=== PATIENT | female | born 1935 | race Caucasian/White ===

== ENCOUNTER → 2016-12-26 | Outpatient (CLI) | payer MEDICARE, BC ==
[~2016-12-26] MED LIST: DENOSUMAB 60 MG/ML 1 ML SYRINGE SQ NR
[2016-12-26 10:21] VITALS: BP 173/84; PULSE 79; RESP 16; TEMP 97.9
== END | disposition home or self-care (01) ==
LOC: PROCWHC3 10:04
PROVIDERS: ATTEND Family Medicine
DX: M81.0 Age-related osteoporosis without current pathological fracture (principal)
CPT/HCPCS: 96372; J0897

== ENCOUNTER → 2018-01-27 | Outpatient (CLI) | payer MEDICARE, BC ==
[~2018-01-27] MED LIST changes: -DENOSUMAB 60 MG/ML 1 ML SYRINGE SQ NR; +DENOSUMAB 60 MG/ML 1 ML SYRINGE SQ ONE
[2018-01-27 13:25] VITALS: BP 138/81; PULSE 83; RESP 16; TEMP 97.9
== END | disposition home or self-care (01) ==
LOC: PROCWHC3 13:02 → EDSTATUS 13:15
PROVIDERS: ATTEND Family Medicine
DX: M81.0 Age-related osteoporosis without current pathological fracture (principal)
CPT/HCPCS: 96372; J0897

== ENCOUNTER → 2018-03-06 | Outpatient (CLI) | payer MEDICARE, BC ==
--- NOTE | 2018-03-06 15:39 | US ---
EXAMINATION TYPE: US carotid duplex BILAT DATE OF EXAM: 03/06/2018 COMPARISON: NONE CLINICAL HISTORY: R09.89 carotid bruit, R01.1 systolic murmur. Right bruit. Smoker. HTN controlled with meds. High cholesterol controlled with meds. EXAM MEASUREMENTS: RIGHT: Peak Systolic Velocity (PSV) cm/sec ----- Right CCA: 61.6 ----- Right ICA: 73.5 ----- Right ECA: 85.6 ICA/CCA ratio: 1.2 RIGHT: End Diastole cm/sec ----- Right CCA: 11.0 ----- Right ICA: 25.2 ----- Right ECA: 0.0 LEFT: Peak Systolic Velocity (PSV) cm/sec ----- Left CCA: 58.1 ----- Left ICA: 88.6 ----- Left ECA: 75.6 ICA/CCA ratio: 1.5 LEFT: End Diastole cm/sec ----- Left CCA: 13.2 ----- Left ICA: 23.7 ----- Left ECA: 0.0 VERTEBRALS (direction of flow): Right Vertebral: Antegrade Left Vertebral: Antegrade Rhythm: Arrhythmia Moderate to severe atherosclerotic change bilaterally. Velocity measurements and ratios in visualized portion of internal carotid artery are within normal limits. IMPRESSION: Moderate to severe atherosclerotic change bilaterally without hemodynamically significan t stenosis seen in either internal carotid artery. Cardiac arrhythmia noted by technologist during re al-time scanning. If this is not known finding further investigation with Holter monitoring would b e advised. Criteria for Assigning % of Stenosis / Diameter reduction (Estimation based on the indirect measurements of the internal carotid artery velocities (ICA PSV). 1. Normal (no stenosis)=ICA PSV < 125 cm/s: ratio < 2.0: ICA EDV<40 cm/s. 2. Less than 50% stenosis=ICA PSV < 125 cm/s: ratio < 2.0: ICA EDV<40 cm/s. 3. 50 to 69% stenosis=ICA PSV of 125 to 230 cm/s: ration 2.0 ? 4.0: ICA EDV 40-100 cm/s. 4. Greater than 70% stenosis to near occlusion= ICA PSV > 230 cm/s: ratio > 4.0: ICA EDV > 100 cm/s. 5. Near occlusion= ICA PSV velocities may be low or undetectable: variable ratio and ICA EDV. 6. Total occlusion=unable to detect flow.
== END | disposition home or self-care (01) ==
LOC: RADUSWWP 14:57
PROVIDERS: ATTEND Family Medicine
DX: I65.23 Occlusion and stenosis of bilateral carotid arteries (principal); I49.9 Cardiac arrhythmia, unspecified
CPT/HCPCS: 93880

== ENCOUNTER → 2018-03-17 | Outpatient (CLI) | payer MEDICARE, BC ==
--- NOTE | 2018-03-18 13:18 | ECHOF ---
Referral Reason:R01.1 Cardiac murmur MEASUREMENTS -------- HEIGHT: 149.9 cm WEIGHT: 47.6 kg BP: RVIDd: 2.4 cm (< 3.3) IVSd: 1.0 cm (0.6 - 1.1) LVIDd: 4.7 cm (3.9 - 5.3) LVPWd: 1.0 cm (0.6 - 1.1) IVSs: 1.2 cm LVIDs: 2.9 cm LVPWs: 1.3 cm LAESV Index (A-L): 88.86 ml/m Ao Diam: 2.9 cm (2.0 - 3.7) AV Cusp: 1.7 cm (1.5 - 2.6) LA Diam: 4.6 cm (2.7 - 3.8) MV EXCURSION: 19.740 mm (> 18.000) MV EF SLOPE: 59 mm/s (70 - 150) EPSS: 0.2 cm MV E Manny: 1.38 m/s MV DecT: 272 ms MV A Manny: 1.12 m/s MV E/A Ratio: 1.23 RAP: 5.00 mmHg RVSP: 37.40 mmHg FINDINGS -------- Sinus rhythm. Frequent ventricular premature beats. This was a technically good study. The left ventricular size is normal. Left ventricular wall thickness is normal. Overall left vent ricular systolic function is normal with, an EF between 55 - 60 %. The right ventricle is normal in size and function. LA is severely dilated >40 ml/m2 The right atrium is normal in size. Aortic valve is trileaflet and is mildly thickened. There is no evidence of aortic regurgitation. There is no evidence of aortic stenosis. The mitral valve leaflets are mildly thickened. Mild mitral annular calcification present. Modera mm-wp-hegzvb mitral regurgitation is present. 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 Sooe-vr-fsjyqwkf tricuspid regurgitation present. There is borderline pulmonary hypertension. The right ventricular systolic pressure, as measured by Doppler, is 37.40mmHg. Trace/mild (physiologic) pulmonic regurgitation. The aortic root size is normal. Normal inferior vena cava with normal inspiratory collapse consistent with estimated right atrial pre ssure of 5 mmHg. Echo free space indicative of a pericardial fat pad. CONCLUSIONS -------- 1. Sinus rhythm. 2. Frequent ventricular premature beats. 3. This was a technically good study. 4. The left ventricular size is normal. 5. Left ventricular wall thickness is normal. 6. Overall left ventricular systolic function is normal with, an EF between 55 - 60 %. 7. LA is severely dilated >40 ml/m2 8. Aortic valve is trileaflet and is mildly thickened. 9. The mitral valve leaflets are mildly thickened. 10. Mild mitral annular calcification present. 11. Crakxqiq-cr-jgmsje mitral regurgitation is present. 12. 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 13. Waxq-vf-mgfguuvw tricuspid regurgitation present. 14. There is borderline pulmonary hypertension. 15. The right ventricular systolic pressure, as measured by Doppler, is 37.40mmHg. 16. Trace/mild (physiologic) pulmonic regurgitation. 17. The aortic root size is normal. 18. Echo free space indicative of a pericardial fat pad. EXCEPTIONAL STUDENT EDUCATION TEACHER: Channing Goldsmith RDCS
== END ==
LOC: RADECHMAIN 14:45
PROVIDERS: ATTEND Family Medicine
DX: I08.1 Rheumatic disorders of both mitral and tricuspid valves (principal)
CPT/HCPCS: 93306

== ENCOUNTER → 2018-09-02 | Outpatient (CLI) | payer MEDICARE, BC ==
[2018-09-02 12:56] VITALS: BP 169/78; PULSE 80; RESP 16; TEMP 97.8
== END | disposition home or self-care (01) ==
LOC: PROCWHC3 12:38
PROVIDERS: ATTEND Family Medicine
DX: M81.0 Age-related osteoporosis without current pathological fracture (principal)
CPT/HCPCS: 96372; J0897

== ENCOUNTER → 2019-03-17 | Outpatient (CLI) | payer MEDICARE, BC ==
[2019-03-17 15:54] LABS: Basophils % (A) 1 %; Eosinophils # (A) 0.1 k/uL (0-0.7); Eosinophils % (A) 1 %; HCT 39.9 % (34.0-46.0); HGB 12.7 gm/dL (11.4-16.0); Lymphocytes # (A) 1.5 k/uL (1.0-4.8); Lymphocytes % (A) 23 %; MCH 28.4 pg (25.0-35.0); MCHC 31.7 g/dL (31.0-37.0); MCV 89.6 fL (80.0-100.0); Mean Platelet Volume 8.4; Monocytes # (A) 0.4 k/uL (0-1.0); Monocytes % (A) 6 %; Neutrophils # (A) 4.4 k/uL (1.3-7.7); Neutrophils % (A) 67 %; Platelet Count 207 k/uL (150-450); RBC 4.45 m/uL (3.80-5.40); RDW 14.6 % (11.5-15.5); WBC 6.5 k/uL (3.8-10.6)
== END | disposition home or self-care (01) ==
LOC: LABPAT 15:02
PROVIDERS: ATTEND Orthopaedic Surgery
DX: Z01.818 Encounter for other preprocedural examination (principal); Z01.812 Encounter for preprocedural laboratory examination; M70.21 Olecranon bursitis, right elbow
CPT/HCPCS: 36415; 80051; 85025; 93005

== ENCOUNTER 2019-03-22 13:30 | Day surgery (SDC) | payer MEDICARE, BC ==
[2019-03-18 10:27] VITALS: BMI 20.2
--- NOTE | 2019-03-21 18:04 | HP ---
HISTORY AND PHYSICAL REASON FOR ADMISSION: Surgery 03/22/2019 Ginette Linn is an 83-year-old lady seen with a persistent right elbow symptomatic bursitis with component of soft tissue mass. We discussed options. She elected to proceed with surgical excision/right elbow olecranon bursectomy. Consent was obtained. PAST MEDICAL HISTORY: Hypertension, het-kikknol-khbzqflii diabetes. PAST SURGICAL HISTORY: Hysterectomy. MEDICATIONS: Amlodipine, levothyroxine, losartan, pravastatin. ALLERGIES: None. SOCIAL HISTORY: Smokes cigarettes. PHYSICAL EXAMINATION: Physical evaluation of the right elbow: There is a soft tissue mass measuring 2 x 2 cm, raised 1.5 cm along the area of the olecranon bursa consistent with a chronic bursitis/soft tissue mass. There is no evidence for any infective process. She has near full range of motion of the elbow. Her distal neurovascular exam is intact. RADIOGRAPHS: Radiographs of the right elbow failed to reveal any osseous abnormality. IMPRESSION: 1. Right elbow olecranon symptomatic bursitis. 2. Hypertension. 3. Hyperlipidemia. 4. Tobacco use. PLAN: Right elbow bursectomy. Surgery is planned for 03/22/2019. MMODL / IJN: [id number] /
[~2019-03-22 13:30] MED LIST changes: -DENOSUMAB 60 MG/ML 1 ML SYRINGE SQ ONE; +LACTATED RINGERS 1,000 ML IV SCH; +LIDOCAINE 1% 20 ML VIAL (10MG/ML) FOR IV START INTRADERMA PRN; +MIDAZOLAM 2 MG/2 ML VIAL IV PRN; +fentaNYL (PF) 50 MCG/ML 2 ML AMP IV PRN
[2019-03-22 13:57] LABS: Glucose,Whole Blood 89 mg/dL (75-99)
[2019-03-22 14:00] VITALS: TEMP 97
[2019-03-22] MEDS ORDERED: ONDANSETRON 4 MG/2 ML VIAL IVP ONE (14:01)
[2019-03-22] MEDS ORDERED: PROPOFOL 10 MG/ML 20 ML VIAL IV ONE (15:01)
[2019-03-22] MEDS ORDERED: MIDAZOLAM 2 MG/2 ML VIAL ONE (15:01)
[2019-03-22] MEDS ORDERED: fentaNYL (PF) 50 MCG/ML 2 ML AMP ONE (15:01)
[2019-03-22] MEDS ORDERED: ROPIVACAINE 5 MG/ML 30 ML VIAL ONE (15:01)
--- NOTE | 2019-03-22 15:37 | P.OP ---
Date of Procedure: 03/22/19 Preoperative Diagnosis: Right elbow symptomatic olecranon bursitis Postoperative Diagnosis: Same Procedure(s) Performed: Right elbow olecranon bursectomy Anesthesia: regional (Supraclavicular block) Surgeon: Sher Mei Loan Expeditor #1: Yg Wang Estimated Blood Loss (ml): 3 Pathology: none sent Condition: stable Disposition: PACU Indications for Procedure: 83-year-old patient seen with a symptomatic right elbow olecranon bursitis. After having treatment options discussed with her, she elected to proceed with excision/bursectomy. Operative Findings: See description of procedure Description of Procedure: The patient underwent a supraclavicular block by the department of anesthesia. The patient was taken to the operative suite. The patient received IV sedation by the department of anesthesia. The patient did receive preoperative IV antibiotics. A well-padded tourniquet placed proximal right upper extremity. The right upper extremity was prepped and draped in the normal sterile orthopedic fashion. The extremity was elevated and tourniquet insufflated to 200. I made an incision over the area of the olecranon bursa. I dissected around the large olecranon bursa. I carefully excised the olecranon bursa. Hemostasis was achieved via electrocautery. The subcu soft tissues were carefully tacked down utilizing 2-0 Vicryl. The skin was repaired with 3-0 nylon. Sterile dressings were applied. Sterile webril and Yazan bandage were applied. The tourniquet was released and immediate capillary refill of all digits noted. The patient was awakened and transferred to recovery in stable condition. Antoine VERGARA assisted with the procedure.
[2019-03-22 16:24] VITALS: BP 146/67; PULSE 62; RESP 20
--- NOTE | 2019-03-22 16:34 | P.ANPRN ---
Procedure Note - Anesthesia - Nerve Block Performed Right Interscalene Single Time Out Performed: Yes Date of Procedure: 03/22/19 Procedure Start Time: 14:34 Location of Patient Procedure: PreOp Indication: Acute Post-Operative Pain, Requested by Surgeon Specifically requested for management of pain by DrMargaret: Sher Mei Sedation Type: Sedate with meaningful contact maintained Preparation: Sterile Prep Position: Supine Catheter: None Needle Types: Pajunk Needle Gauge: 21 Ultrasound used to visualize needle placement: Yes Ultrasound used to observe medication spread: Yes Injectate: 0.5% Ropivacaine (see comment for volume) (20cc) Blood Aspirated: No Pain Paresthesia on Injection Noted: No Resistance on Injection: Normal Image Stored and Saved: Yes Events: Uneventful and Well Tolerated
== END 2019-03-22 16:50 | disposition home or self-care (01) ==
LOC: OR 13:30
PROVIDERS: ATTEND Orthopaedic Surgery
DX: M70.21 Olecranon bursitis, right elbow (principal); I10 Essential (primary) hypertension; E11.9 Type 2 diabetes mellitus without complications; Z90.710 Acquired absence of both cervix and uterus; F17.210 Nicotine dependence, cigarettes, uncomplicated; E78.5 Hyperlipidemia, unspecified; Z85.3 Personal history of malignant neoplasm of breast; Z97.2 Presence of dental prosthetic device (complete) (partial); Z79.890 Hormone replacement therapy; Z79.899 Other long term (current) drug therapy
CPT/HCPCS: 64415; 76942; 24105; J2250; J2405; J0690; J3010; J2795; J2704; 88305

== ENCOUNTER → 2019-03-26 | Outpatient (CLI) | payer MEDICARE, BC ==
--- NOTE | 2019-03-27 15:42 | ECHOF ---
Referral Reason:R01.1 Heart Murmur MEASUREMENTS -------- HEIGHT: 154.9 cm WEIGHT: 45.4 kg BP: IVSd: 1.3 cm (0.6 - 1.1) LVIDd: 4.4 cm (3.9 - 5.3) LVPWd: 1.1 cm (0.6 - 1.1) IVSs: 1.7 cm LVIDs: 3.2 cm LVPWs: 0.8 cm LA Diam: 6.3 cm (2.7 - 3.8) LAESV Index (A-L): 122.59 ml/m Ao Diam: 2.6 cm (2.0 - 3.7) AV Cusp: 1.2 cm (1.5 - 2.6) LA Diam: 6.7 cm (2.7 - 3.8) MV EXCURSION: 17.701 mm (> 18.000) MV EF SLOPE: 61 mm/s (70 - 150) EPSS: 0.4 cm MV E Manny: 0.76 m/s MV DecT: 244 ms MV A Manny: 0.76 m/s MV E/A Ratio: 0.99 RAP: 5.00 mmHg RVSP: 44.00 mmHg TAPSE: 19.91 mm FINDINGS -------- Sinus rhythm. This was a technically good study. The left ventricular size is normal. Left ventricular wall thickness is normal. Overall left vent ricular systolic function is low-normal with, an EF between 50 - 55 %. Left ventricular fillimg pre ssure cannot be estimated due to severe mitral regurgitation. The right ventricle is normal in size. LA is severely dilated >40 ml/m2 The right atrial size is normal. ASD VS PFO. Aortic valve is trileaflet and is mildly thickened. There is no evidence of aortic regurgitation. Mild mitral annular calcification present. Severe mitral regurgitation is present. There is mild mitral valve prolapse. Possible MV Chordal Rupture. Cney-hd-aykbukdo tricuspid regurgitation present. There is mild pulmonary hypertension. The right ventricular systolic pressure, as measured by Doppler, is 44.00mmHg. Trace/mild (physiologic) pulmonic regurgitation. The aortic root size is normal. Normal inferior vena cava with normal inspiratory collapse consistent with estimated right atrial pre ssure of 5 mmHg. There is no pericardial effusion. CONCLUSIONS -------- 1. Sinus rhythm. 2. This was a technically good study. 3. The left ventricular size is normal. 4. Left ventricular wall thickness is normal. 5. Overall left ventricular systolic function is low-normal with, an EF between 50 - 55 %. 6. Left ventricular fillimg pressure cannot be estimated due to severe mitral regurgitation. 7. LA is severely dilated >40 ml/m2 8. ASD VS PFO. 9. Aortic valve is trileaflet and is mildly thickened. 10. Mild mitral annular calcification present. 11. Severe mitral regurgitation is present. 12. There is mild mitral valve prolapse. 13. Possible MV Chordal Rupture. 14. Izhc-xr-yysncbnw tricuspid regurgitation present. 15. There is mild pulmonary hypertension. 16. Trace/mild (physiologic) pulmonic regurgitation. 17. The aortic root size is normal. 18. Normal inferior vena cava with normal inspiratory collapse consistent with estimated right atrial pressure of 5 mmHg. 19. There is no pericardial effusion. APPLIANCE FIXER: Vero Magallanes RDCS
== END | disposition home or self-care (01) ==
LOC: RADECHMAIN 16:20
PROVIDERS: ATTEND Family Medicine
DX: I08.3 Combined rheumatic disorders of mitral, aortic and tricuspid valves (principal); I27.20 Pulmonary hypertension, unspecified
CPT/HCPCS: 93306

== ENCOUNTER → 2019-04-05 | Outpatient (CLI) | payer MEDICARE, BC ==
[~2019-04-05] MED LIST changes: +DENOSUMAB 60 MG/ML 1 ML SYRINGE SQ NR; -LACTATED RINGERS 1,000 ML IV SCH; -LIDOCAINE 1% 20 ML VIAL (10MG/ML) FOR IV START INTRADERMA PRN; -MIDAZOLAM 2 MG/2 ML VIAL IV PRN; -fentaNYL (PF) 50 MCG/ML 2 ML AMP IV PRN
[2019-04-05 14:41] VITALS: BP 152/88; PULSE 84; RESP 18; TEMP 98.2
== END | disposition home or self-care (01) ==
LOC: PROCWHC3 14:24
PROVIDERS: ATTEND Family Medicine
DX: M81.0 Age-related osteoporosis without current pathological fracture (principal)
CPT/HCPCS: 96372; J0897

== ENCOUNTER 2019-04-13 06:27 | Day surgery (SDC) | payer MEDICARE, BC ==
[2019-04-09 11:20] VITALS: BMI 20.2
[2019-04-13] MEDS ORDERED: SODIUM CHLORIDE 0.9% 500 ML 500 ML IV ONE (07:00)
[2019-04-13 07:04] VITALS: TEMP 97.9
[2019-04-13] MEDS ORDERED: fentaNYL (PF) 50 MCG/ML 2 ML AMP ONE (07:11)
[2019-04-13] MEDS ORDERED: fentaNYL (PF) 50 MCG/ML 2 ML AMP IV ONE (07:25)
[2019-04-13] MEDS ORDERED: BENZOCAINE SPRAY 1 CAN MUCOUS MEM ONE (07:25)
[2019-04-13] MEDS ORDERED: MIDAZOLAM 2 MG/2 ML VIAL IV ONE (07:25)
[2019-04-13] MEDS ORDERED: SODIUM CHLORIDE 0.9% 1,000 ML IV SCH (07:45)
--- NOTE | 2019-04-13 08:29 | ECHOT ---
TRANSESOPHAGEAL ECHOCARDIOGRAM INDICATION: Evaluation of mitral valve. PROCEDURE: After explaining the procedure to the patient as well as the risks and the complications, blood pressure, heart rate, O2 saturation was monitored. The throat was sprayed with Cetacaine. She received 2 mg intravenous Versed, 50 mcg intravenous fentanyl. The probe was introduced esophagus without difficulties. Images were obtained. Following that, the probe was removed. There was no immediate complication. FINDINGS: The left atrial size is dilated. Left atrial appendage is normal. Left ventricular size is normal. The ejection fraction is 50% to 55%. The aortic valve appears to be normal. Mitral valve revealed flail posterior mitral valve leaflets with ruptured chordae. The tricuspid and pulmonic valves are normal. Descending thoracic aorta revealed mild to moderate atherosclerotic changes. No pericardial effusion was noted. Contrast bubble study revealed no evidence of shunting across the interatrial septum. Doppler pulse wave and color Doppler obtained and revealed a severe eccentric mitral regurgitation with mild to moderate tricuspid with trace pulmonic and aortic regurgitation. The estimated right ventricular systolic pressure was 65 mmHg consistent with severe pulmonary hypertension. A small patent foramen ovale was noted with itgq-nn-jkuix shunting. CONCLUSION: 1. Dilated left atrium with normal appearance of left atrial appendage. 2. Normal left ventricular size with ejection fraction 50% to 55%. 3. Flail posterior mitral valve leaflets with ruptured chordae and severe eccentric mitral regurgitation. 4. Mild to moderate tricuspid regurgitation with severe pulmonary hypertension. 5. Small patent foramen ovale. 6. Trace pulmonic and aortic regurgitation. 7. Mild to moderate atherosclerotic change of the descending thoracic aorta. 8. No pericardial effusion. MMODL / IJN: [id number] /
[2019-04-13 08:41] VITALS: BP 119/57; PULSE 66; RESP 18
[2019-04-13] MEDS ORDERED: NON FORMULARY DRUG (Cholecalciferol (Vitamin D3) [Vitamin D3] 2,000 UNIT) PO SCH (09:00)
[2019-04-13] MEDS ORDERED: LEVOTHYROXINE 75 MCG TAB PO SCH (09:00)
[2019-04-13] MEDS ORDERED: amLODIPine 5 MG TAB PO SCH (13:30)
[2019-04-13] MEDS ORDERED: PRAVASTATIN SODIUM 80 MG TAB PO SCH (21:00)
[2019-04-13] MEDS ORDERED: NON FORMULARY DRUG (Losartan Potassium [Losartan Potassium] 100 MG) PO SCH (21:00)
== END 2019-04-13 08:54 | disposition home or self-care (01) ==
LOC: CATHCVL 06:27
PROVIDERS: ATTEND Internal Medicine Interventional Cardiology
DX: I08.3 Combined rheumatic disorders of mitral, aortic and tricuspid valves (principal); Q21.1 Atrial septal defect; I70.0 Atherosclerosis of aorta; I27.20 Pulmonary hypertension, unspecified; R09.89 Other specified symptoms and signs involving the circulatory and respiratory systems; E78.2 Mixed hyperlipidemia; E11.9 Type 2 diabetes mellitus without complications; F17.210 Nicotine dependence, cigarettes, uncomplicated; R01.1 Cardiac murmur, unspecified; Z79.890 Hormone replacement therapy; Z79.899 Other long term (current) drug therapy
CPT/HCPCS: 93312; 93320; 93325; J2250; J3010

== ENCOUNTER → 2020-01-31 | Outpatient (CLI) | payer MEDICARE, BC ==
[~2020-01-31] MED LIST changes: -DENOSUMAB 60 MG/ML 1 ML SYRINGE SQ NR; +DENOSUMAB 60 MG/ML 1 ML SYRINGE SQ ONE
[2020-01-31 14:07] VITALS: BP 152/68; PULSE 73; RESP 18; TEMP 97.7
== END | disposition home or self-care (01) ==
LOC: PROCWHC3 13:45
PROVIDERS: ATTEND Family Medicine
DX: M81.0 Age-related osteoporosis without current pathological fracture (principal)
CPT/HCPCS: 96372; J0897

== ENCOUNTER 2020-03-23 22:44 | Inpatient (IN) | payer MEDICARE, BC ==
--- NOTE | 2020-03-23 23:21 | ED ---
Chest Pain HPI - General Chief Complaint: Chest Pain Stated Complaint: Chest Pain Time Seen by Provider: 03/23/20 22:54 Source: EMS Mode of arrival: EMS Limitations: no limitations - History of Present Illness MD Complaint: chest pain Onset/Timin -: days(s) Onset: during rest Pain Location: substernal, left chest, right chest Pain Radiation: RUE (Right shoulder) Severity: severe Quality: aching Consistency: now resolved Improves With: nothing Worsens With: nothing Treatments Prior to Arrival: aspirin - Related Data Home Medications Medication Instructions Recorded Confirmed Losartan Potassium 100 mg PO DAILY 01/27/18 03/24/20 Pravastatin Sodium [Pravachol] 80 mg PO HS 01/27/18 03/24/20 amLODIPine BESYLATE [Norvasc] 5 mg PO DAILY 01/27/18 03/24/20 Levothyroxine Sodium [Euthyrox] 75 mcg PO DAILY 03/24/20 03/24/20 Previous Rx's Medication Instructions Recorded Apixaban [Eliquis] 2.5 mg PO BID #60 tablet 03/27/20 Furosemide [Lasix] 40 mg PO DAILY #30 tab 03/27/20 Allergies Allergy/AdvReac Type Severity Reaction Status Date / Time No Known Allergies Allergy Verified 03/24/20 06:04 Review of Systems ROS Statement: Those systems with pertinent positive or pertinent negative responses have been documented in the HPI. ROS Other: All systems not noted in ROS Statement are negative. Constitutional: Denies: fever, chills Respiratory: Reports: as per HPI, cough (Chronic cough), dyspnea. Denies: wheezes, hemoptysis Cardiovascular: Reports: as per HPI, chest pain, edema (Bilateral foot edema). Denies: palpitations, orthopnea, syncope Gastrointestinal: Denies: abdominal pain, nausea, vomiting, melena, hematochezia Genitourinary: Denies: dysuria, hematuria Musculoskeletal: Denies: back pain Skin: Denies: rash Neurological: Denies: headache, weakness, numbness EKG Findings - EKG Results: EKG: interpreted by ERMD EKG shows: tachycardia, atrial fibrillation Past Medical History Past Medical History: Cancer, Hyperlipidemia, Hypertension Additional Past Medical History / Comment(s): hx of left breast ca with radiation 1991 History of Any Multi-Drug Resistant Organisms: None Reported Past Surgical History: Hysterectomy Additional Past Surgical History / Comment(s): neck sx, left breast lumpectomy. right elbow bursectomy Past Anesthesia/Blood Transfusion Reactions: No Reported Reaction Past Psychological History: No Psychological Hx Reported Smoking Status: Former smoker Past Alcohol Use History: Occasional Past Drug Use History: None Reported - Past Family History Mother Family Medical History: No Reported History Father Additional Family Medical History / Comment(s): Father fairly young as complications of adhesions. General Exam Limitations: no limitations General appearance: alert, in no apparent distress Head exam: Present: atraumatic, normocephalic Eye exam: Present: normal appearance. Absent: scleral icterus, conjunctival injection ENT exam: Present: normal oropharynx Respiratory exam: Present: normal lung sounds bilaterally, wheezes (Trace expiratory wheeze), rales (Bilateral bases). Absent: respiratory distress, rhonchi, stridor, accessory muscle use Cardiovascular Exam: Present: tachycardia, irregular rhythm, normal heart sounds. Absent: systolic murmur, diastolic murmur, rubs, gallop GI/Abdominal exam: Present: soft. Absent: distended, tenderness, guarding, rebound, rigid, mass Extremities exam: Present: normal inspection, normal capillary refill, pedal edema (Trace edema at the ankles bilaterally). Absent: calf tenderness Back exam: Present: normal inspection. Absent: CVA tenderness (R), CVA tenderness (L) Neurological exam: Present: alert Skin exam: Present: warm, dry, intact, normal color. Absent: rash Course Vital Signs 03/23/20 03/23/20 03/24/20 22:46 23:00 00:06 Temperature 97.5 F L Pulse Rate 70 97 Respiratory 19 22 23 Rate Blood Pressure 136/65 134/68 O2 Sat by Pulse 85 L 98 Oximetry 03/24/20 03/24/20 03/24/20 01:20 02:03 03:26 Temperature 97.7 F 98.3 F Pulse Rate 89 96 89 Respiratory 20 19 19 Rate Blood Pressure 130/66 162/75 131/60 O2 Sat by Pulse 98 97 96 Oximetry 03/24/20 03/24/20 04:15 11:43 Temperature 98.3 F 98.5 F Pulse Rate 94 73 Respiratory 18 18 Rate Blood Pressure 113/62 138/85 O2 Sat by Pulse 96 96 Oximetry - Reevaluation(s) Reevaluation #1: 03/24/20 00:24 Case discussed with cardiology (Dr. Holly) and their input is incorporated Critical Care Time Critical Care Time: Yes (35 minutes) Disposition Clinical Impression: Congestive heart failure (CHF), Atrial flutter with rapid ventricular response, Mitral regurgitation Disposition: ADMITTED IP TO THIS HOSP Condition: Serious
[2020-03-23 23:25] LABS: Basophils % (A) 1 %; Eosinophils # (A) 0.1 k/uL (0-0.7); Eosinophils % (A) 2 %; HCT 37.4 % (34.0-46.0); HGB 11.8 gm/dL (11.4-16.0); Lymphocytes # (A) 1.2 k/uL (1.0-4.8); Lymphocytes % (A) 21 %; MCH 28.1 pg (25.0-35.0); MCHC 31.6 g/dL (31.0-37.0); MCV 89.2 fL (80.0-100.0); Mean Platelet Volume 9.4; Monocytes # (A) 0.3 k/uL (0-1.0); Monocytes % (A) 6 %; Neutrophils % (A) 69 %; Platelet Count 175 k/uL (150-450); RBC 4.19 m/uL (3.80-5.40); RDW 13.5 % (11.5-15.5); WBC 5.8 k/uL (3.8-10.6)
[2020-03-23 23:33] LABS: Albumin 3.9 g/dL (3.5-5.0); Calcium 9.1 mg/dL (8.4-10.2); Potassium 4.1 mmol/L (3.5-5.1); Total Bilirubin 0.4 mg/dL (0.2-1.3); Total Protein 6.4 g/dL (6.3-8.2)
[2020-03-23] MEDS ORDERED: LORazepam 2 MG/ML INJ IV STA (23:40)
[2020-03-23 23:43] LABS: INR 0.9 (<1.2); Partial Thromboplastin Time 27.7 sec (22.0-30.0); Prothrombin Time 9.9 sec (9.0-12.0)
[2020-03-23 23:51] LABS: D-Dimer 4.2 mg/L FEU (<0.60)
--- NOTE | 2020-03-23 23:54 | XR ---
EXAMINATION TYPE: XR chest 1V DATE OF EXAM: 03/23/2020 COMPARISON: NONE HISTORY: Difficulty breathing TECHNIQUE: Single view FINDINGS: Heart is enlarged. There is pulmonary edema. There is blunting of the costophrenic angles. There are chest leads. There is old left side rib fracture. IMPRESSION: There is evidence of congestive heart failure and small pleural effusions. There is proba liat underlying pulmonary fibrosis.
[2020-03-24] MEDS ORDERED: FUROSEMIDE 10 MG/ML 2 ML VIAL IV STA (00:20)
--- NOTE | 2020-03-24 01:03 | CT ---
EXAMINATION TYPE: CT chest angio for PE DATE OF EXAM: 03/24/2020 COMPARISON: None HISTORY: SOB, elevated d-dimer CT DLP: 209.6 mGycm Automated exposure control for dose reduction was used. CONTRAST: Performed with IV Contrast, patient injected with 80 mL of Isovue 370. There are 3-D post processed images. There is moderate right pleural effusion. There is small left pleural effusion. Heart is enlarged. Th ere is no pericardial effusion. There is extensive atherosclerotic vascular calcification. There is p ulmonary emphysema. There is coarse interstitial infiltrate throughout the lungs. There is pulmonary interstitial edema. There is normal contrast opacification of the pulmonary arteries. There are no filling defects. Thora cic aorta is atheromatous. There is no aneurysm or dissection. The bony thorax is intact. IMPRESSION: No evidence of pulmonary embolism. Moderately severe cardiomegaly with pleural fluid and pulmonary edema is consistent with chronic manuel estive heart failure.
[2020-03-24] MEDS ORDERED: DILTIAZEM ORAL 30 MG TAB PO STA (01:09)
[2020-03-24] MEDS ORDERED: ENOXAPARIN 60 MG/0.6 ML SYRINGE SQ STA (01:10)
[2020-03-24] MEDS ORDERED: ASPIRIN 81 MG PO STA (01:18)
[2020-03-24] MEDS: FUROSEMIDE 10 MG/ML 4 ML VIAL IV SCH ×3 (01:38→20:58)
--- NOTE | 2020-03-24 11:00 | ECHOF ---
Referral Reason: MEASUREMENTS -------- HEIGHT: 129.5 cm WEIGHT: 47.6 kg BP: 113/62 RVIDd: 2.1 cm (< 3.3) IVSd: 1.4 cm (0.6 - 1.1) LVIDd: 3.8 cm (3.9 - 5.3) LVPWd: 1.4 cm (0.6 - 1.1) IVSs: 2.0 cm LVIDs: 2.0 cm LVPWs: 1.9 cm LAESV Index (A-L): 163.28 ml/m Ao Diam: 2.5 cm (2.0 - 3.7) AV Cusp: 1.7 cm (1.5 - 2.6) LA Diam: 4.7 cm (2.7 - 3.8) MV EXCURSION: 17.007 mm (> 18.000) MV EF SLOPE: 134 mm/s (70 - 150) EPSS: 0.2 cm MV E Manny: 1.35 m/s MV DecT: 255 ms MV A Manny: 0.30 m/s MV E/A Ratio: 4.45 RAP: 5.00 mmHg RVSP: 23.26 mmHg FINDINGS -------- This was a technically good study. The left ventricular size is normal. There is mild concentric left ventricular hypertrophy. Overa ll left ventricular systolic function is normal with, an EF between 55 - 60 %. Increased LAP Grade 2 Diastolic Dysfunction. The right ventricle is normal in size. LA is severely dilated >40 ml/m2 The right atrial size is normal. Interatrial and interventricular septum intact. Aortic valve is trileaflet and is mildly thickened. The mitral valve leaflets are mildly thickened. Mild mitral annular calcification present. Severe mitral regurgitation is present , predominately an anteriorly directed jet. Flail/partial flail of the posterior leaflet. The tricuspid valve appears structurally normal. Mild tricuspid regurgitation present. Right vent ricular systolic pressure is normal at < 35 mmHg. Trace/mild (physiologic) pulmonic regurgitation. The aortic root size is normal. Normal inferior vena cava with normal inspiratory collapse consistent with estimated right atrial pre ssure of 5 mmHg. There is no pericardial effusion. CONCLUSIONS -------- 1. The left ventricular size is normal. 2. There is mild concentric left ventricular hypertrophy. 3. Overall left ventricular systolic function is normal with, an EF between 55 - 60 %. 4. Increased LAP Grade 2 Diastolic Dysfunction. 5. LA is severely dilated >40 ml/m2 6. Aortic valve is trileaflet and is mildly thickened. 7. The mitral valve leaflets are mildly thickened. 8. Mild mitral annular calcification present. 9. Severe mitral regurgitation is present. 10. , predominately an anteriorly directed jet. 11. Flail/partial flail of the posterior leaflet. 12. Mild tricuspid regurgitation present. 13. Trace/mild (physiologic) pulmonic regurgitation. 14. There is no pericardial effusion. HOMICIDE DETECTIVE: Bridget Hernandez RDCS
[2020-03-24] MEDS: LEVOTHYROXINE 75 MCG TAB PO SCH (12:20)
[2020-03-24] MEDS: amLODIPine 5 MG TAB PO SCH (12:20)
[2020-03-24] MEDS: ENOXAPARIN 60 MG/0.6 ML SYRINGE SQ SCH (12:20)
[2020-03-24 13:21] VITALS: BMI 21.2
--- NOTE | 2020-03-24 17:04 | P.HPIM ---
History of Present Illness H&P Date: 03/24/20 Chief Complaint: chest pain History of presenting complaint: This is a pleasant 84-year-old patient of Dr. Madsen. Chronic stable medical conditions include hypertension, hyperlipidemia, osteoarthritis, hypothyroid, arthritis. Patient and March 2019 did have a LEANDRO found to have a severe mitral regurgitation with a ruptured chordae tendineae, severe pulmonary hypertension. Patient declined any surgery for the same. Patient denies any coronary artery disease history. Yesterday patient was sitting when she developed pressure across the chest. It lasted for good 1 hour. Going all across. [place] pressure-like. It did not radiate to the neck around. Patient became very anxious and tired. Some shortness of breath. Denied any dizziness or lightheadedness. No perspiration. Admitted with unstable angina. Cardiology was consulted. Patient was held felt to be in CHF. Given IV Lasix. Patient is feeling better after IV Lasix. Review of systems: GEN.: Tired EYES: None HEENT: Decreased hearing] NECK: None RESPIRATORY: As above CARDIOVASCULAR: As above GASTROINTESTINAL: None GENITOURINARY: None MUSCULOSKELETAL: Joint pains LYMPHATICS: None HEMATOLOGICAL: None PSYCHIATRY: Slight anxiety NEUROLOGICAL: None Past medical history to include: Irregular heartbeat, left breast cancer with lumpectomy radiation treatment in 1991, arthritis, Social history: Patient status post smoking as a teenager and smoked heavily for many years and quit in 2019. Alcohol occasional. Physical examination: VITAL SIGNS: 97.5, 70, 19, 136/65, 85% on room air GENERAL: BMI 21.2, sitting in bed, awake. EYES: Pupils equal. Conjunctiva normal. HEENT: External appearance of nose and ears normal, oral cavity grossly normal decreased hearing. NECK: JVDraised; masses not palpable. HEART: First and second heart sounds are normal; no edema. LUNGS: Respiratory rate increased, basal crackles. ABDOMEN: Soft, nontender, liver spleen not palpable, no masses palpable. PSYCH: Alert and oriented x3; mood and affect anxiousl. MUSCULAR skeletal: Evidence of OA NEUROLOGICAL: Cranial nerves grossly intact; no facial asymmetry, power and sensation grossly intact. LYMPHATICS: No lymph nodes palpable in the axilla and neck INVESTIGATIONS, reviewed in the clinical context: White count 5.8 hemoglobin 11.8 platelets 135 potassium 4.1 creatinine 0.96 Troponin I less than 0.0123 ProBNP 4180 EKG tracing personally reviewed by me-atrial flutter with PVCs Chest x-ray film personally reviewed by me-pulmonary edema with cardiomegaly Chest CTA-cardiac regular pleural effusion, negative for PE 2-D echocardiogram EF 55-60%, severe mitral regurgitation flail posterior leaflet Assessment: -Unstable angina -Acute congestive heart failure exacerbation from diastolic dysfunction and a contribution from atrial flutter, EF 55-60% -Persistent atrial flutter -Severe mitral regurgitation with flail posterior leaflet, patient has declined surgery in the past -PVCs -Severe secondary pulmonary hypertension -Hyperlipidemia -Essential hypertension -Primary osteoarthritis -Hypothyroid -Hard of hearing Plan: Patient is on IV Lasix increased to 40 mg every 8. Home medications to continue. Cardiology consulted. Check TSH. Follow lites. Care was discussed with the patient. Past Medical History Past Medical History: Cancer, Hyperlipidemia, Hypertension, Osteoarthritis (OA), Thyroid Disorder Additional Past Medical History / Comment(s): "Irregular heart beat"-pt does not recall type, murmur, left breast ca with lumpectomy/radiation 1991, arthritis bilateral legs with occasional upper leg pain, hypothyroid History of Any Multi-Drug Resistant Organisms: None Reported Past Surgical History: Breast Surgery, Hysterectomy Additional Past Surgical History / Comment(s): L breast lumpectomy 1991, cervical fracture with surgery/hardware, R elbow bursectomy, bilateral cataract removal/lens implante. Past Anesthesia/Blood Transfusion Reactions: No Reported Reaction Smoking Status: Former smoker - Past Family History Mother Family Medical History: Dementia Father Additional Family Medical History / Comment(s): Father fairly young as complications of adhesions. Medications and Allergies Home Medications Medication Instructions Recorded Confirmed Type Losartan Potassium 100 mg PO DAILY 01/27/18 03/24/20 History Pravastatin Sodium [Pravachol] 80 mg PO HS 01/27/18 03/24/20 History amLODIPine BESYLATE [Norvasc] 5 mg PO DAILY 01/27/18 03/24/20 History Levothyroxine Sodium [Euthyrox] 75 mcg PO DAILY 03/24/20 03/24/20 History Allergies Allergy/AdvReac Type Severity Reaction Status Date / Time No Known Allergies Allergy Verified 03/24/20 06:04 Physical Exam Vitals: Vital Signs Temp Pulse Resp BP Pulse Ox 03/24/20 04:15 98.3 F 94 18 113/62 96 03/24/20 03:26 98.3 F 89 19 131/60 96 03/24/20 02:03 97.7 F 96 19 162/75 97 03/24/20 01:20 89 20 130/66 98 03/24/20 00:06 97 23 134/68 98 03/23/20 23:00 22 03/23/20 22:46 97.5 F L 70 19 136/65 85 L Intake and Output 03/23/20 03/24/20 03/24/20 22:59 06:59 14:59 Other: Weight 47.627 kg 47.627 kg Results CBC & Chem 7: 03/23/20 23:16 03/23/20 23:16 Labs: Abnormal Lab Results - Last 24 Hours (Table) 03/23/20 03/23/20 Range/Units 23:16 23:16 D-Dimer 4.20 H (<0.60) mg/L FEU Sodium 136 L (137-145) mmol/L BUN 18 H (7-17) mg/dL Glucose 110 H (74-99) mg/dL AST 113 H (14-36) U/L ALT 74 H (4-34) U/L Thrombosis Risk Factor Assmnt - Choose All That Apply Any of the Below Risk Factors Present?: Yes Other Risk Factors: Yes Each Risk Factor Represents 2 Points: Malignancy Each Risk Factor Represents 3 Points: Age 75 years or older Other congenital or acquired thrombophilia - If yes, enter type in comment: No Thrombosis Risk Factor Assessment Total Risk Factor Score: 5 Thrombosis Risk Factor Assessment Level: High Risk
[2020-03-24 17:15] LABS: Calcium 8.9 mg/dL (8.4-10.2); Potassium 4.1 mmol/L (3.5-5.1)
[2020-03-24] MEDS: LOSARTAN 25 MG TAB PO SCH (20:19)
[2020-03-24] MEDS: PRAVASTATIN SODIUM 80 MG TAB PO SCH (21:00)
[2020-03-25] MEDS: FUROSEMIDE 10 MG/ML 4 ML VIAL IV SCH ×2 (00:24→08:51)
[2020-03-25] MEDS: ENOXAPARIN 60 MG/0.6 ML SYRINGE SQ SCH ×2 (00:24→08:51)
[2020-03-25] MEDS: LEVOTHYROXINE 75 MCG TAB PO SCH (06:03)
--- NOTE | 2020-03-25 08:16 | P.CRDCN ---
History of Present Illness Consult date: 03/25/20 Requesting physician: Mack Durant Consult reason: congestive heart failure (Atrial flutter, mitral regurgitation) History of present illness: History of present illness: This is an 84-year-old female patient with past medical history of hypertension, hyperlipidemia, hypothyroidism, left breast cancer status post lumpectomy. Patient was seen by Dr. Chaudhry in March 2019 which revealed ejection fraction 50-55%, dilated left atrium with normal appearance of left atrial appendage. Flail posterior mitral valve leaflets with ruptured chordae and severe eccentric mitral regurgitation, mild to moderate tricuspid regurgitation with severe pulmonary hypertension, small patent foramen ovale. Trace pulmonic and aortic regurgitation. Mild to moderate atherosclerotic change of the descending thoracic aorta. No pericardial effusion. Patient was referred by her primary care physician Raymon Hull underwent further testing down there which patient is unable to provide any detailed and was recommended for surgical intervention which patient declined. Patient states that she has irregular heartbeat but does not recall the name or type. She had sudden onset of chest pain across her whole chest worse with deep inspiration. It occurred at rest. She was not feeling well all day yesterday and the pain started around 8:30 on the evening of March 23. Patient states she took some aspirin at home and by the time EMS arrived she was feeling okay. She's never had pain like this before. She denies having any fever or chills. She has a chronic cough. She states she may have gained a little bit of weight, maybe a couple pounds. Troponins were negative on 3 draws. BUN 18 and creatinine 0.96, sodium 136, potassium 4.1. AST 113, ALT 74. D-dimer was 4.2. CBC was unremarkable. Chest x-ray reveals evidence of heart failure and small pleural effusions. Probable underlying pulmonary fibrosis. CTA of the chest showed no evidence of pulmonary embolism. Moderate severe cardiomegaly with pleural fluid and pulmonary edema is consistent with chronic congestive heart failure. Echocardiogram reveals EF of 55-60%, mild concentric left ventricle hypertrophy, severe mitral regurgitation, mild tricuspid regurgitation, LA severely dilated greater than 40. EKG is atrial flutter with PVCs. Patient was started on Lasix 40 mg IV every 8 hours. She also received a dose of Cardizem and started on Lovenox. Patient also relates that she has had some anxiety and received IV Ativan which helped her sleep. At the time of this evaluation, patient denies having any chest pain and symptoms completely resolved. Patient has a history of smoking 1 pack per day for 60 years and quit in May 2018. She drinks wine occasionally. No illicit drug use. She denies any family history of coronary artery disease. night monitor is atrial flutter with PVCs. No weight changes been documented. Review Of Systems: Constitutional: No fever, no chills. No weakness, fatigue or lethargy. EENT: No headache. No dizziness. Lungs: No shortness of breath, cough, no sputum production. No wheezing. Cardiovascular: No chest pain, no lower extremity edema. No palpitations. No paroxysmal nocturnal dyspnea. No orthopnea. No lightheadedness or dizziness. No syncopal episodes. Abdominal: No abdominal pain. No nausea, vomiting. No diarrhea. No constipation. No bloody or tarry stools.. No loss of appetite. Genitourinary: No dysuria. No urinary retention. Musculoskeletal: No myalgias. No muscle weakness, no gait dysfunction, no frequent falls. No back pain. No neck pain. Integumentary: No wounds, no lesions. No rash or pruritus. Neurologic: No aphasia. No facial droop. No change in mentation. No head injury. No headache. No paralysis. No paresthesia. Psychiatric: No depression Reports anxiety. Endocrine: No abnormal blood sugars. Physical examination: Gen: This is an 84-year-old female. Patient is resting in bed and appears to be comfortable and in no acute distress. VS:Afebrile, heart rate 64, blood pressure 107/52, pulse ox 97% on 2 L nasal cannula.. HEENT: Head is atraumatic, normocephalic. Pupils equal, round. Sclerae is anicteric. NECK: Supple. No JVD. No lymphadenopathy. No thyromegaly. LUNGS Crackles in the bilateral bases No intercostal retractions. HEART Irregular rate and rhythm. No murmur. ABDOMEN: Soft. Bowel sounds are present. No masses. No tenderness. EXTREMITIES: No pedal edema. No calf tenderness. NEUROLOGICAL: Patient is awake, alert and oriented x3. Cranial nerves 2 through 12 are grossly intact. Assessment: Chest pain with negative troponins, acute coronary syndrome ruled out Acute diastolic heart failure Persistent atrial flutter Severe mitral regurgitation Severe pulmonary hypertension Hypertension Hyperlipidemia Hypothyroidism Plan: Continue Lasix 40 mg IV every 8 hours Monitor I&O, daily weights, renal function and electrolytes Continue losartan and amlodipine Further recommendations to follow based upon clinical course Thank you kindly for this consultation. Nurse practitioner note has been reviewed, I agree with documented findings and plan of care. Patient was seen and examined. Past Medical History Past Medical History: Cancer, Hyperlipidemia, Hypertension, Osteoarthritis (OA), Thyroid Disorder Additional Past Medical History / Comment(s): "Irregular heart beat"-pt does not recall type, murmur, left breast ca with lumpectomy/radiation 1991, arthritis bilateral legs with occasional upper leg pain, hypothyroid History of Any Multi-Drug Resistant Organisms: None Reported Past Surgical History: Breast Surgery, Hysterectomy Additional Past Surgical History / Comment(s): L breast lumpectomy 1991, cervical fracture with surgery/hardware, R elbow bursectomy, bilateral cataract removal/lens implante. Past Anesthesia/Blood Transfusion Reactions: No Reported Reaction Smoking Status: Former smoker - Past Family History Mother Family Medical History: Dementia Father Additional Family Medical History / Comment(s): Father fairly young as complications of adhesions. Medications and Allergies Home Medications Medication Instructions Recorded Confirmed Type Losartan Potassium 100 mg PO DAILY 01/27/18 03/24/20 History Pravastatin Sodium [Pravachol] 80 mg PO HS 01/27/18 03/24/20 History amLODIPine BESYLATE [Norvasc] 5 mg PO DAILY 01/27/18 03/24/20 History Levothyroxine Sodium [Euthyrox] 75 mcg PO DAILY 03/24/20 03/24/20 History Allergies Allergy/AdvReac Type Severity Reaction Status Date / Time No Known Allergies Allergy Verified 03/24/20 06:04 Physical Exam Vitals: Vital Signs Temp Pulse Pulse Resp BP BP Pulse Ox 03/25/20 04:00 97.9 F 64 18 107/52 97 03/25/20 03:20 84 18 03/25/20 00:00 97.5 F L 84 18 111/56 96 03/24/20 20:00 98.1 F 57 L 18 157/68 97 03/24/20 16:00 98.1 F 57 L 16 157/68 97 03/24/20 12:00 97.8 F 63 20 131/78 94 L 03/24/20 11:43 98.5 F 73 18 138/85 96 Intake and Output 03/24/20 03/25/20 03/25/20 22:59 06:59 14:59 Output Total 900 Balance -900 Output: Urine 900 Other: Voiding Method Toilet Toilet # Voids 1 Weight 47.6 kg Results 03/23/20 23:16 03/25/20 06:44 Comprehensive Metabolic Panel 03/24/20 Range/Units 05:28 Sodium 136 L (137-145) mmol/L Potassium 4.1 (3.5-5.1) mmol/L Chloride 103 (98-107) mmol/L Carbon Dioxide 26 (22-30) mmol/L BUN 20 H (7-17) mg/dL Creatinine 0.87 (0.52-1.04) mg/dL Glucose 112 H (74-99) mg/dL Calcium 8.9 (8.4-10.2) mg/dL Current Medications Generic Name Dose Route Start Last Admin Trade Name Freq PRN Reason Stop Dose Admin Amlodipine Besylate 5 mg 03/24/20 13:30 03/24/20 12:20 Amlodipine 5 Mg Tab PO 5 mg PC-LUNCH VALDO Administration Enoxaparin Sodium 47 mg 03/24/20 13:00 03/25/20 00:24 Enoxaparin 60 Mg/0.6 Ml Syringe SQ 47 mg Q12H VALDO Administration Furosemide 40 mg 03/24/20 17:15 03/25/20 00:24 Furosemide 10 Mg/Ml 4 Ml Vial IV 40 mg Q8HR VALDO Administration Levothyroxine Sodium 75 mcg 03/24/20 06:30 03/25/20 06:03 Levothyroxine 75 Mcg Tab PO 75 mcg QAM@0630 VALDO Administration Losartan Potassium 100 mg 03/24/20 21:00 03/24/20 20:19 Losartan 25 Mg Tab PO 100 mg HS VALDO Administration Pravastatin Sodium 80 mg 03/24/20 21:00 03/24/20 21:00 Pravastatin Sodium 80 Mg Tab PO 80 mg HS VALDO Administration Sodium Chloride 10 ml 03/24/20 09:00 03/24/20 20:23 Sodium Chloride 0.9% Flush 10 Ml Syringe IV 10 ml BID VALDO Administration Intake and Output 03/24/20 03/25/20 03/25/20 22:59 06:59 14:59 Output Total 900 Balance -900 Output: Urine 900 Other: Voiding Method Toilet Toilet # Voids 1 Weight 47.6 kg 03/23/20 23:16 03/24/20 05:28
[2020-03-25 08:20] LABS: Calcium 8.6 mg/dL (8.4-10.2); Potassium 4.2 mmol/L (3.5-5.1)
[2020-03-25] MEDS: amLODIPine 5 MG TAB PO SCH (08:51)
--- NOTE | 2020-03-25 10:21 | P.PN ---
Subjective This is a pleasant 84-year-old patient of Dr. Madsen. Chronic stable medical conditions include hypertension, hyperlipidemia, osteoarthritis, hypothyroid, arthritis. Patient and March 2019 did have a LEANDRO found to have a severe mitral regurgitation with a ruptured chordae tendineae, severe pulmonary hypertension. Patient declined any surgery for the same. Patient denies any coronary artery disease history. Yesterday patient was sitting when she developed pressure across the chest. It lasted for good 1 hour. Going all across. [place] pressure-like. It did not radiate to the neck around. Patient became very anxious and tired. Some shortness of breath. Denied any dizziness or lightheadedness. No perspiration. Admitted with unstable angina. Cardiology was consulted. Patient was held felt to be in CHF. Given IV Lasix. Patient is feeling better after IV Lasix. 03/25/20 Patient is awake and alert. She still have some tachypnea but denies chest pressure today. Hemodynamically stable blood pressure on the low normal however patient is with no dizziness. Sodium is 135, creatinine is slightly increased to 1.0. Serial troponins are negative. Patient remains on IV Lasix and Lovenox Objective - Vital Signs Vital signs: Vital Signs Temp 97.7 F 03/25/20 08:00 Pulse 56 L 03/25/20 08:00 Resp 18 03/25/20 08:00 BP 99/56 03/25/20 08:00 Pulse Ox 97 03/25/20 08:00 Intake & Output 03/24/20 03/25/20 03/25/20 18:59 06:59 18:59 Intake Total 200 Output Total 900 Balance 200 -900 Weight 47.627 kg 47.6 kg Intake: Oral 200 Output: Urine 900 Other: Voiding Method Toilet # Voids 2 1 - Exam GENERAL: The patient is alert and oriented x3, not in any acute distress. Well developed, well nourished. HEENT: Pupils are round and equally reacting to light. EOMI. No scleral icterus. No conjunctival pallor. Normocephalic, atraumatic. No pharyngeal erythema. No thyromegaly. CARDIOVASCULAR: S1 and S2 present. No murmurs, rubs, or gallops. -PULMONARY: Chest is clear to auscultation, no wheezing or crackles. Bilateral basal crepitation ABDOMEN: Soft, nontender, nondistended, normoactive bowel sounds. No palpable organomegaly. MUSCULOSKELETAL: No joint swelling or deformity. EXTREMITIES: No cyanosis, clubbing, or pedal edema. NEUROLOGICAL: Gross neurological examination did not reveal any focal deficits. SKIN: No rashes. no petechiae.. - Labs CBC & Chem 7: 03/23/20 23:16 03/25/20 06:44 Labs: Abnormal Lab Results - Last 24 Hours (Table) 03/24/20 03/25/20 Range/Units 05:28 06:44 Sodium 136 L 135 L (137-145) mmol/L Chloride 95 L (98-107) mmol/L Carbon Dioxide 35 H (22-30) mmol/L BUN 20 H 21 H (7-17) mg/dL Glucose 112 H (74-99) mg/dL Assessment and Plan Assessment: Assessment: -Chest pain, rule out cardiac causes -Acute congestive heart failure exacerbation from diastolic dysfunction and a contribution from atrial flutter, EF 55-60% -Persistent atrial flutter -Severe mitral regurgitation with flail posterior leaflet, patient has declined surgery in the past -PVCs -Severe secondary pulmonary hypertension -Hyperlipidemia -Essential hypertension -Primary osteoarthritis -Hypothyroid -Hard of hearing Plan: This is a pleasant 84 years old female who presents with CHF and chest pain. Continue with Lasix. Continue with Lovenox. Cardiology consult. Labs and medication were reviewed.. Continue same treatment. Continue with symptomatic treatment. Resume home medication. Monitor lytes and vitals. DVT and GI prophylaxis. Further recommendationsas per clinical course of the patient DVT prophylaxis: Subcutaneous Lovenox GI Prophylaxis: Pepcid PT/OT: Pending
[2020-03-25] MEDS ORDERED: DOCUSATE 100 MG CAP PO PRN (12:42)
[2020-03-25] MEDS ORDERED: SENNOSIDES 8.6 MG TAB PO PRN (12:42)
[2020-03-25] MEDS ORDERED: FUROSEMIDE 10 MG/ML 2 ML VIAL IV ONE (19:35)
[2020-03-25] MEDS: LOSARTAN 25 MG TAB PO SCH (19:51)
[2020-03-25] MEDS: PRAVASTATIN SODIUM 80 MG TAB PO SCH (19:51)
[2020-03-25] MEDS: FAMOTIDINE 20 MG/2 ML VIAL IV SCH (19:51)
[2020-03-25] MEDS ORDERED: FUROSEMIDE 10 MG/ML 4 ML VIAL IV SCH (21:00)
[2020-03-26] MEDS: ENOXAPARIN 60 MG/0.6 ML SYRINGE SQ SCH ×3 (00:05→20:16)
[2020-03-26] MEDS: FUROSEMIDE 10 MG/ML 4 ML VIAL IV SCH ×2 (00:05→09:02)
[2020-03-26] MEDS: LEVOTHYROXINE 75 MCG TAB PO SCH (06:05)
[2020-03-26 08:36] LABS: Calcium 8.7 mg/dL (8.4-10.2); Potassium 4.3 mmol/L (3.5-5.1)
[2020-03-26] MEDS: FAMOTIDINE 20 MG/2 ML VIAL IV SCH ×2 (09:02→20:15)
[2020-03-26] MEDS: amLODIPine 5 MG TAB PO SCH (09:02)
--- NOTE | 2020-03-26 10:24 | P.PN ---
Subjective Progress Note Date: 03/26/20 History of present illness: This is an 84-year-old female patient with past medical history of hypertension, hyperlipidemia, hypothyroidism, left breast cancer status post lumpectomy. Patient was seen by Dr. Chaudhry in March 2019 which revealed ejection fraction 50-55%, dilated left atrium with normal appearance of left atrial appendage. Flail posterior mitral valve leaflets with ruptured chordae and severe eccentric mitral regurgitation, mild to moderate tricuspid regurgitation with severe pulmonary hypertension, small patent foramen ovale. Trace pulmonic and aortic regurgitation. Mild to moderate atherosclerotic change of the descending thoracic aorta. No pericardial effusion. Patient was referred by her primary care physician Raymon Hull underwent further testing down there which patient is unable to provide any detailed and was recommended for surgical intervention which patient declined. Patient states that she has irregular heartbeat but does not recall the name or type. She had sudden onset of chest pain across her whole chest worse with deep inspiration. It occurred at rest. She was not feeling well all day yesterday and the pain started around 8:30 on the evening of March 23. Patient states she took some aspirin at home and by the time EMS arrived she was feeling okay. She's never had pain like this before. She denies having any fever or chills. She has a chronic cough. She states she may have gained a little bit of weight, maybe a couple pounds. Troponins were negative on 3 draws. BUN 18 and creatinine 0.96, sodium 136, potassium 4.1. AST 113, ALT 74. D-dimer was 4.2. CBC was unremarkable. Chest x-ray reveals evidence of heart failure and small pleural effusions. Probable underlying pulmonary fibrosis. CTA of the chest showed no evidence of pulmonary embolism. Moderate severe cardiomegaly with pleural fluid and pulmonary edema is consistent with chronic congestive heart failure. Echocardiogram reveals EF of 55-60%, mild concentric left ventricle hypertrophy, severe mitral regurgitation, mild tricuspid regurgitation, LA severely dilated greater than 40. EKG is atrial flutter with PVCs. Patient was started on Lasix 40 mg IV every 8 hours. She also received a dose of Cardizem and started on L ovenox. Patient also relates that she has had some anxiety and received IV Ativan which helped her sleep. At the time of this evaluation, patient denies having any chest pain and symptoms completely resolved. Patient has a history of smoking 1 pack per day for 60 years and quit in May 2018. She drinks wine occasionally. No illicit drug use. She denies any family history of coronary artery disease. desk monitor is atrial flutter with PVCs. No weight changes been documented. 03/26: Patient has been afebrile, heart rate 52, blood pressure 113/57, pulse ox 92% on room air. Repeat blood work reveals sodium 134, potassium 4.3, chloride 90, CO2 36, BUN 24 and creatinine 1.19. TSH 1.070. Weight is down 1 kg from admission, patient has been diuresing well. Patient states that she has ambulated in her room and denies any shortness of breath with exertion. Echocardiogram reveals EF of 55-60% with mild concentric left ventricular hypertrophy, mild Physical examination: Gen: This is an 84-year-old female. Patient is resting in bed and prashanth ears to be comfortable and in no acute distress. VS:Afebrile, heart rate 64, blood pressure 107/52, pulse ox 97% on 2 L nasal cannula.. HEENT: Head is atraumatic, normocephalic. Pupils equal, round. Sclerae is anicteric. NECK: Supple. No JVD. No lymphadenopathy. No thyromegaly. LUNGS: Clear to auscultation No intercostal retractions. HEART: Irregular rate and rhythm. No murmur. ABDOMEN: Soft. Bowel sounds are present. No masses. No tenderness. EXTREMITIES: No pedal edema. No calf tenderness. NEUROLOGICAL: Patient is awake, alert and oriented x3. Cranial nerves 2 through 12 are grossly intact. Assessment: Chest pain with negative troponins, acute coronary syndrome ruled out Acute diastolic heart failure Persistent atrial flutter Severe mitral regurgitation Severe pulmonary hypertension Hypertension Hyperlipidemia Hypothyroidism Plan: Transition IV Lasix to oral 40 mg daily Monitor I&O, daily weights, renal function and electrolytes Continue losartan and amlodipine Patient is cleared for discharge from cardiology. We will now follow on an as- needed basis. Nurse practitioner note has been reviewed, I agree with documented findings and plan of care. Patient was seen and examined. Objective - Vital Signs Vital signs: Vital Signs Temp 98.2 F 03/26/20 08:00 Pulse 52 L 03/26/20 08:00 Resp 20 03/26/20 08:00 BP 113/57 03/26/20 08:00 Pulse Ox 92 L 03/26/20 08:00 Intake & Output 03/25/20 03/26/20 03/26/20 18:59 06:59 18:59 Intake Total 430 Output Total 600 2425 Balance -170 -2425 Weight 46.8 kg Intake: Oral 430 Output: Urine 600 2425 Other: Voiding Method Toilet # Voids 2 - Labs CBC & Chem 7: 03/23/20 23:16 03/26/20 07:35 Labs: Abnormal Lab Results - Last 24 Hours (Table) 03/26/20 Range/Units 07:35 Sodium 134 L (137-145) mmol/L Chloride 92 L (98-107) mmol/L Carbon Dioxide 36 H (22-30) mmol/L BUN 24 H (7-17) mg/dL Creatinine 1.19 H (0.52-1.04) mg/dL Glucose 113 H (74-99) mg/dL
--- NOTE | 2020-03-26 12:58 | P.PN ---
Subjective This is a pleasant 84-year-old patient of Dr. Madsen. Chronic stable medical conditions include hypertension, hyperlipidemia, osteoarthritis, hypothyroid, arthritis. Patient and March 2019 did have a LEANDRO found to have a severe mitral regurgitation with a ruptured chordae tendineae, severe pulmonary hypertension. Patient declined any surgery for the same. Patient denies any coronary artery disease history. Yesterday patient was sitting when she developed pressure across the chest. It lasted for good 1 hour. Going all across. Schneider pressure-like. It did not radiate to the neck around. Patient became very anxious and tired. Some shortness of breath. Denied any dizziness or lightheadedness. No perspiration. Admitted with unstable angina. Cardiology was consulted. Patient was held felt to be in CHF. Given IV Lasix. Patient is feeling better after IV Lasix. 03/25/20 Patient is awake and alert. She still have some tachypnea but denies chest pressure today. Hemodynamically stable blood pressure on the low normal however patient is with no dizziness. Sodium is 135, creatinine is slightly increased to 1.0. Serial troponins are negative. Patient remains on IV Lasix and Lovenox 03/26/2020 Patient still have some dyspnea but is improving. No chest pain. No coughing of phlegm. She is complaining from constipation. Chest x-ray she has moderate right pleural effusion. Hemodynamically stable. Creatinine is slightly elevated at 1.1 and oral Lasix is a started instead of IV Lasix Patient remains on Lovenox and will discuss with concrete buster operator team to change it to Eliquis prior to discharge Objective - Vital Signs Vital signs: Vital Signs Temp 98.2 F 03/26/20 08:00 Pulse 52 L 03/26/20 08:00 Resp 20 03/26/20 08:00 BP 113/57 03/26/20 08:00 Pulse Ox 92 L 03/26/20 08:00 Intake & Output 03/25/20 03/26/20 03/26/20 18:59 06:59 18:59 Intake Total 430 180 Output Total 600 2425 Balance -170 -2425 180 Weight 46.8 kg Intake: Oral 430 180 Output: Urine 600 2425 Other: Voiding Method Toilet # Voids 2 - Exam GENERAL: The patient is alert and oriented x3, not in any acute distress. Well developed, well nourished. HEENT: Pupils are round and equally reacting to light. EOMI. No scleral icterus. No conjunctival pallor. Normocephalic, atraumatic. No pharyngeal erythema. No thyromegaly. CARDIOVASCULAR: S1 and S2 present. No murmurs, rubs, or gallops. -PULMONARY: Chest is clear to auscultation, no wheezing or crackles. Bilateral basal crepitation ABDOMEN: Soft, nontender, nondistended, normoactive bowel sounds. No palpable organomegaly. MUSCULOSKELETAL: No joint swelling or deformity. EXTREMITIES: No cyanosis, clubbing, or pedal edema. NEUROLOGICAL: Gross neurological examination did not reveal any focal deficits. SKIN: No rashes. no petechiae.. - Labs CBC & Chem 7: 03/23/20 23:16 03/26/20 07:35 Labs: Abnormal Lab Results - Last 24 Hours (Table) 03/26/20 Range/Units 07:35 Sodium 134 L (137-145) mmol/L Chloride 92 L (98-107) mmol/L Carbon Dioxide 36 H (22-30) mmol/L BUN 24 H (7-17) mg/dL Creatinine 1.19 H (0.52-1.04) mg/dL Glucose 113 H (74-99) mg/dL Assessment and Plan Assessment: Assessment: -Chest pain, rule out cardiac causes. Improved -Acute congestive heart failure exacerbation from diastolic dysfunction and a contribution from atrial flutter, EF 55-60% -Right sided pleural effusion -Persistent atrial flutter -Severe mitral regurgitation with flail posterior leaflet, patient has declined surgery in the past -PVCs -Severe secondary pulmonary hypertension -Hyperlipidemia -Essential hypertension -Primary osteoarthritis -Hypothyroid -Hard of hearing Plan: This is a pleasant 84 years old female who presents with CHF and chest pain. Continue with Lasix. Continue with Lovenox. Cardiology consult. Repeat chest x-ray in the morning Labs and medication were reviewed.. Continue same treatment. Continue with symptomatic treatment. Resume home medication. Monitor lytes and vitals. DVT and GI prophylaxis. Further recommendationsas per clinical course of the patient DVT prophylaxis: Subcutaneous Lovenox GI Prophylaxis: Pepcid PT/OT: Pending
[2020-03-26] MEDS: PRAVASTATIN SODIUM 80 MG TAB PO SCH (20:15)
[2020-03-26] MEDS: LOSARTAN 25 MG TAB PO SCH (20:15)
[2020-03-27] MEDS: LEVOTHYROXINE 75 MCG TAB PO SCH (05:41)
[2020-03-27 08:22] LABS: Calcium 8.2 mg/dL (8.4-10.2); Magnesium 2.1 mg/dL (1.6-2.3)
[2020-03-27] MEDS: FAMOTIDINE 20 MG/2 ML VIAL IV SCH (08:31)
--- NOTE | 2020-03-27 08:43 | XR ---
EXAMINATION TYPE: XR chest 1V DATE OF EXAM: 03/27/2020 COMPARISON: 03/23/2020 HISTORY: Shortness of breath TECHNIQUE: Single frontal view of the chest is obtained. FINDINGS: Subsegmental changes at both lung bases. Heart is enlarged. Atherosclerotic change aorta. Biapical pleural thickening. Diffuse osteopenia. No overt failure. Chronic rib cage deformities noted . IMPRESSION: 1. Cardiomegaly with COPD and basilar subsegmental consolidation is improving suggestive of resolving atelectasis or infiltrate. 2. Improving interstitial pattern suggestive of resolving CHF.
[2020-03-27] MEDS ORDERED: APIXABAN 2.5 MG TABLET PO SCH (09:00)
[2020-03-27] MEDS ORDERED: FUROSEMIDE 40 MG TAB PO SCH (09:00)
--- NOTE | 2020-03-27 10:14 | P.PN ---
Subjective Progress Note Date: 03/27/20 This is an 84-year-old female patient with past medical history of hypertension, hyperlipidemia, hypothyroidism, left breast cancer status post lumpectomy. Patient was seen by Dr. Chaudhry in March 2019 which revealed ejection fraction 50-55%, dilated left atrium with normal appearance of left atrial appendage. Flail posterior mitral valve leaflets with ruptured chordae and severe eccentric mitral regurgitation, mild to moderate tricuspid regurgitation with severe pulmonary hypertension, small patent foramen ovale. Trace pulmonic and aortic regurgitation. Mild to moderate atherosclerotic change of the descending thoracic aorta. No pericardial effusion. Patient was referred by her primary care physician Raymon Hull underwent further testing down there which patient is unable to provide any detailed and was recommended for surgical intervention which patient declined. Patient is in a typical atrial flutter, heart rate under good control this morning. She had been on Lovenox which we will discontinue, we will start the patient on Eliquis 2-1/2 mg one tablet by mouth twice a day. They did just check on coverage for her, she does not have coverage but she is being given the free months, and then following up with her assembler rubber footwear in [place] to discuss options for anticoag ulation. Hemodynamically she is stable this morning. Feels well. Blood pressure 120/60 with a heart rate in the 60s, 97% on room air. Sodium 131, potassium 4.0, BUN 18, creatinine 0.9, magnesium 2.1. Objective - Vital Signs Vital signs: Vital Signs Temp 97.8 F 03/27/20 04:00 Pulse 69 03/27/20 04:00 Resp 17 03/27/20 04:00 BP 128/59 03/27/20 04:00 Pulse Ox 97 03/27/20 04:00 Intake & Output 03/26/20 03/27/20 03/27/20 18:59 06:59 18:59 Intake Total 410 480 Output Total 600 1050 Balance -190 -1050 480 Weight 47.6 kg Intake: Oral 410 480 Output: Urine 600 1050 Other: Voiding Method Toilet # Voids 2 # Bowel Movements 1 - Exam PHYSICAL EXAMINATION: GENERAL: 84-year-old female in no acute distress at the time of my examination HEENT: Head is atraumatic, normocephalic. Pupils equal, round. Sclera anicteric. Conjunctiva are clear. Mucous membranes of the mouth are moist. Neck is supple. There is no elevated jugular venous pressure. No carotid bruit is heard. HEART EXAMINATION: Heart S1 and S2 irregularly irregular a systolic murmur is heard CHEST EXAMINATION: Lungs are clear to auscultation and precussion. No chest wall tenderness is noted on palpation or with deep breathing. ABDOMEN: Soft, nontender. Bowel sounds are heard. No organomegaly noted. EXTREMITIES: 2+ peripheral pulses with no evidence of peripheral edema and no calf tenderness noted. NEUROLOGIC patient is awake, alert and oriented 3 . . - Labs CBC & Chem 7: 03/23/20 23:16 03/27/20 07:11 Labs: Abnormal Lab Results - Last 24 Hours (Table) 03/27/20 Range/Units 07:11 Sodium 131 L (137-145) mmol/L Chloride 92 L (98-107) mmol/L Carbon Dioxide 35 H (22-30) mmol/L BUN 18 H (7-17) mg/dL Calcium 8.2 L (8.4-10.2) mg/dL Assessment and Plan Plan: Assessment and plan: #1 Chest pain with negative troponins, acute coronary syndrome ruled out #2 Acute diastolic heart failure #3 Persistent atrial flutter, atypical #4 Severe mitral regurgitation #5 Severe pulmonary hypertension #6 Hypertension #7 Hyperlipidemia #8 Hypothyroidism Plan We will discontinue the Lovenox and start the patient on Eliquis 2-1/2 mg one tablet by mouth twice a day. We will give her a free one month supply. She Will Follow-Up with Her Scientist in [place] Next Week. DNP note has been reviewed, I agree with a documented findings and plan of care. Patient was seen and examined.
[2020-03-27 11:04] VITALS: RESP 16
[2020-03-27 13:21] VITALS: BP 138/94; PULSE 58; TEMP 98.2
[2020-03-27] MEDS: amLODIPine 5 MG TAB PO SCH (15:01)
[2020-03-27] MEDS ORDERED: FAMOTIDINE 20 MG TAB PO SCH (21:00)
--- NOTE | 2020-03-28 00:41 | P.DS ---
Providers Date of admission: 03/24/20 01:17 Attending physician: Mack Durant Consults: 03/24/20 01:11 Consult Physician Stat Consulting Provider: Mikey Holly Consult Reason/Comments: CHF. New onset atrial flutter. Mitral regurg. (Chronic chordae rupture) Do you want consulting provider notified?: Already Contacted Primary care physician: Dusty Madsen Hospital Course: Diagnoses: -Chest pain. Resolved -Acute congestive heart failure exacerbation from diastolic dysfunction and a contribution from atrial flutter, EF 55-60%. Improved -Right sided pleural effusion, improved -Persistent atrial flutter. Rate controlled -Severe mitral regurgitation with flail posterior leaflet, patient has declined surgery in the past -PVCs -Severe secondary pulmonary hypertension -Hyperlipidemia -Essential hypertension -Primary osteoarthritis -Hypothyroid -Hard of hearing Hospital course: This is a pleasant 84-year-old patient of Dr. Madsen. Chronic stable medical conditions include hypertension, hyperlipidemia, osteoarthritis, hypothyroid, arthritis. Patient and March 2019 did have a LEANDRO found to have a severe mitral regurgitation with a ruptured chordae tendineae, severe pulmonary hypertension. Patient declined any surgery for the same. Patient denies any coronary artery disease history. patient was sitting when she developed pressure across the chest. It lasted for good 1 hour. Serial troponins are negative. Also patient found to have acute CHF. She received IV Lasix, her respiratory problem improved significantly and she was on room air prior to discharge. Lasix switched to oral prior to discharge. Cardiology team will follow the patient closely and cleared her for discharge Also patient started on anticoagulation Eliquis 2.5 mg twice a day as per cardiology recommendation, one month free component is provided for the patient and she is going to follow-up with her watch manufacturing supervisor at [place] in 1-2 weeks, also she has an appointment with watch manufacturing supervisor Dr. Chaudhry on 04/04 and she and her daughter agrees with that appointment. Risks of bleeding explained for the patient. Also patient is a discharge on oral Lasix. Problems and management plan were discussed with the patient and he verbalized understanding and acceptance Patient was found stable and can be discharged home however he needs follow-up as an outpatient. Patient was instructed to follow up with PCP Dr. Madsen within one week and patient agrees with his appointment On 03/29. Patient also was instructed to follow up with her watch manufacturing supervisor as an outpatientAnd she agrees with that appointment as above with Dr. Chaudhry Gen: patient is a AAOx3, no distress CVS: S1-S2, RRR, no murmur Lungs: B/L CTA, no wheezing Abdomen: soft, no distention, no tenderness, positive bowel sounds Extremity: no leg edema or induration Time spent more than 35 minutes Plan - Discharge Summary Discharge Rx Participant: No New Discharge Prescriptions: New Apixaban [Eliquis] 2.5 mg PO BID #60 tablet Furosemide [Lasix] 40 mg PO DAILY #30 tab Continue Pravastatin Sodium [Pravachol] 80 mg PO HS amLODIPine BESYLATE [Norvasc] 5 mg PO DAILY Losartan Potassium 100 mg PO DAILY Levothyroxine Sodium [Euthyrox] 75 mcg PO DAILY Discharge Medication List Losartan Potassium 100 mg PO DAILY 01/27/18 [History] Pravastatin Sodium [Pravachol] 80 mg PO HS 01/27/18 [History] amLODIPine BESYLATE [Norvasc] 5 mg PO DAILY 01/27/18 [History] Levothyroxine Sodium [Euthyrox] 75 mcg PO DAILY 03/24/20 [History] Apixaban [Eliquis] 2.5 mg PO BID #60 tablet 03/27/20 [Rx] Furosemide [Lasix] 40 mg PO DAILY #30 tab 03/27/20 [Rx] Follow up Appointment(s)/Referral(s): Erick Chaudhry MD [STAFF PHYSICIAN] - 04/04/20 2:30 pm Dusty Madsen MD [Primary Care Provider] - 03/29/20 10:15 am Patient Instructions/Handouts: Heart Failure (DC), Safe Use of Anticoagulants (DC) Activity/Diet/Wound Care/Special Instructions: Eliquis filled with free coupon - patient given application for patient assistance program. CHF 1. Weigh yourself every morning after you urinate. If you gain 2-3 pounds overnight or 5 pounds in one week, call your primary physician for guidance on your medications. Keep a log of your weights. 2. Avoid salt, or foods with hidden salt. Extra salt makes your heart work harder and traps the fluid in your body for longer. 3. Take all of your medications as directed, especially your water pills. NEVER skip a dose. 4. Elevate your legs when you are not up moving around to help with circulation and prevent swelling. 5. Call your physician if you notice any extra swelling in your legs, ankles, feet or abdomen, if you have a new dry cough, if your shortness of breath worsens with activity or at rest, or if you feel more fatigued. Discharge Disposition: HOME SELF-CARE
--- NOTE | 2020-03-29 00:59 | CDI ---
Documentation Clarification Form Date: 03/29/2020 From: Thomas Bella Phone: If you have a question about this query, please contact Prisca Larsen, [employer] at [phone] between 8am and 5pm. Admit Date: 03/24/2020 Discharge Date: 03/27/2020 Patient Name: Ginette Linn Visit Number: [id number] ATTENTION: The Clinical Documentation Specialists (CDI) and [facility] Coding Staff appreciate your assistance in clarifying documentation. Please respond to the clarification below the line at the bottom and electronically sign. The CDI & [facility] Coding staff will review the response and follow-up if needed. Please note: Queries are made part of the Legal Health Record. If you have any questions, please contact the author of this message via ITS. Dear Griffin Beasley MD., The patient presented with the CHF and Atrial flutter. History/Risk Factors: PFO, Severe Mitral regurgitation, Hypothyroidism Radiology findings: Patient and March 2019 did have a LEANDRO found to have a severemitral regurgitation with a ruptured chordae tendineae, severe pulmonary hypertension. Vital Signs:Temp 97.8 F 03/27/20 04:00 Pulse 69 03/27/20 04:00 Resp 17 03/27/20 04:00 BP 128/59 03/27/20 04:00 Pulse Ox 97 03/27/20 04:00 Treatment: Declined surgery for Mitral valve regurgitation. Patient and March 2019 did have a LEANDRO found to have a severe mitral regurgitation with a ruptured chordae tendineae, severe pulmonary hypertension. Patient declined surgery for the same. In your professional opinion, can you please clarify Ruptured chordae tendineae Present chronically? YES(present along with mitral valve regurgitation) NO(only mitral valve regurgitation) Other, please specify Unable to determine it is part of patient past medical history , not an active issue during this admission MTDD
== END 2020-03-27 15:22 | disposition home or self-care (01) | DRG 292 ==
LOC: EC 22:44 → 3SCARD 03-24 01:17
PROVIDERS: ADMIT Hospitalist; ATTEND Hospitalist
DX: I11.0 Hypertensive heart disease with heart failure (principal); Q21.1 Atrial septal defect; I48.4 Atypical atrial flutter; E78.5 Hyperlipidemia, unspecified; I50.33 Acute on chronic diastolic (congestive) heart failure; E03.9 Hypothyroidism, unspecified; H91.90 Unspecified hearing loss, unspecified ear; J84.10 Pulmonary fibrosis, unspecified; I08.1 Rheumatic disorders of both mitral and tricuspid valves; M19.91 Primary osteoarthritis, unspecified site; I49.3 Ventricular premature depolarization; K59.00 Constipation, unspecified; Z96.1 Presence of intraocular lens; R07.89 Other chest pain; I27.29 Other secondary pulmonary hypertension; Z79.899 Other long term (current) drug therapy; Z79.890 Hormone replacement therapy; Z85.3 Personal history of malignant neoplasm of breast; Z92.3 Personal history of irradiation; Z90.710 Acquired absence of both cervix and uterus; Z87.891 Personal history of nicotine dependence; Z98.890 Other specified postprocedural states; Z98.42 Cataract extraction status, left eye; Z98.41 Cataract extraction status, right eye; Z81.8 Family history of other mental and behavioral disorders
CPT/HCPCS: 36415; 71045; 71275; 80048; 80053; 83605; 83735; 83880; 84443; 84484; 85025; 85379; 85610; 85730; 93005; 93306; 96372; 96374; 96375; 96376; 99285

== ENCOUNTER → 2020-12-21 | Outpatient (CLI) | payer MEDICARE, BC ==
[~2020-12-21] MED LIST changes: +DENOSUMAB 60 MG/ML 1 ML SYRINGE SQ NR; -DENOSUMAB 60 MG/ML 1 ML SYRINGE SQ ONE
[2020-12-21 12:49] VITALS: BP 104/65; PULSE 69; RESP 16; TEMP 98.1
== END ==
LOC: PROCWHC3 12:38
PROVIDERS: ATTEND Physician Assistant
DX: M81.0 Age-related osteoporosis without current pathological fracture (principal); F17.200 Nicotine dependence, unspecified, uncomplicated
CPT/HCPCS: 96372; J0897

== ENCOUNTER 2021-01-23 13:50 | Emergency (ER) | payer MEDICARE, BC ==
[2021-01-23 14:15] VITALS: TEMP 97.5
--- NOTE | 2021-01-23 15:11 | ED ---
GI Bleed HPI - General Chief complaint: GI Bleed Stated complaint: bloody stool Time Seen by Provider: 01/23/21 15:10 Source: patient Mode of arrival: wheelchair Limitations: no limitations - History of Present Illness Initial comments: Ginette was 85-year-old female presents the ER today for concern of dark stools and bright red blood when using the restroom. Patient reports that earlier in the week she had some crampy abdominal pain and diarrhea, she took some Pepto- Bismol. Her crampy abdominal pain and diarrhea have resolved, however she's noted that her stools are very dark. Addition patient does have a history of hemorrhoids and has had hemorrhoid surgeries in the past. She has noted that there are some bright red blood in the toilet when she uses the restroom. She states she's even noticed some bright red blood in her underpants. Daughter became concerned because the patient is on Eliquis having dark stools, or for daughter brought her to the ER for evaluation. Patient denies any abdominal pain today. She is not having any chest pain palpitation shortness breath lightheadedness. No passing out. - Related Data Home Medications Medication Instructions Recorded Confirmed Losartan Potassium 100 mg PO HS 01/27/18 01/23/21 Pravastatin Sodium [Pravachol] 80 mg PO HS 01/27/18 01/23/21 amLODIPine BESYLATE [Norvasc] 5 mg PO DAILY 01/27/18 01/23/21 Levothyroxine Sodium [Euthyrox] 75 mcg PO DAILY 03/24/20 01/23/21 carvediloL [Coreg] 6.25 mg PO BID 01/23/21 01/23/21 Previous Rx's Medication Instructions Recorded Apixaban [Eliquis] 2.5 mg PO BID #60 tablet 03/27/20 Furosemide [Lasix] 40 mg PO DAILY #30 tab 03/27/20 Allergies Allergy/AdvReac Type Severity Reaction Status Date / Time No Known Allergies Allergy Verified 01/23/21 16:04 Review of Systems ROS Statement: Those systems with pertinent positive or pertinent negative responses have been documented in the HPI. ROS Other: All systems not noted in ROS Statement are negative. Past Medical History Past Medical History: Cancer, Hyperlipidemia, Hypertension Additional Past Medical History / Comment(s): hx of left breast ca with radiation 1991 History of Any Multi-Drug Resistant Organisms: None Reported Past Surgical History: Hysterectomy Additional Past Surgical History / Comment(s): neck sx, left breast lumpectomy. right elbow bursectomy Past Anesthesia/Blood Transfusion Reactions: No Reported Reaction Past Psychological History: No Psychological Hx Reported Smoking Status: Former smoker Past Alcohol Use History: Occasional Past Drug Use History: None Reported - Past Family History Mother Family Medical History: No Reported History Father Additional Family Medical History / Comment(s): Father fairly young as co mplications of adhesions. General Exam - General Exam Comments Initial Comments: Physical Exam GENERAL: Patient is well-developed and well-nourished. Patient is nontoxic and well- hydrated and is in no distress. HENT: Normocephalic, Atraumatic. EYES: PERRL, EOMI No conjunctival pallor PULMONARY: Unlabored respirations. No audible rales rhonchi or wheezing was noted. CARDIOVASCULAR: There is a regular rate and rhythm without any murmurs gallops or rubs. ABDOMEN: Soft and nontender with normal bowel sounds. SKIN: Skin is clear with no lesions or rashes and otherwise unremarkable. : Internal and external hemorrhoids noted, no active bleeding Normal external genitalia, no vaginal bleeding, no masses palpable on bimanual exam NEUROLOGIC: Patient is alert and oriented x3. Moving all extremities spontaneously MUSCULOSKELETAL: Normal extremities with adequate strength and full range of motion. No lower extremity swelling or edema. No calf tenderness. PSYCHIATRIC: Normal psychiatric evaluation. Limitations: no limitations Course Vital Signs 01/23/21 01/23/21 01/23/21 14:12 15:40 16:34 Temperature 97.5 F L Pulse Rate 60 73 66 Respiratory 18 16 16 Rate Blood Pressure 145/80 140/85 150/62 O2 Sat by Pulse 94 L 98 100 Oximetry Medical Decision Making - Medical Decision Making The patient was seen and evaluated history is obtained from the patient and family at bedside Patient is on blood thinner, she's been having black stools and had some bright red blood in the toilet and in her underpants. She does have internal and external hemorrhoids. Black stools are likely related to Pepto-Bismol use. Labs were obtained, hemoglobin is stable, she has some mild dehydration with elevated BUN and creatinine. No other critical abnormalities. This headache do feel the patient is stable for discharge home with outpatient follow-up. - Lab Data Result diagrams: 01/23/21 15:12 01/23/21 15:12 Lab Results 01/23/21 01/23/21 01/23/21 Range/Units 15:12 15:12 15:12 WBC 6.3 (3.8-10.6) k/uL RBC 4.24 (3.80-5.40) m/uL Hgb 12.3 (11.4-16.0) gm/dL Hct 37.3 (34.0-46.0) % MCV 87.9 (80.0-100.0) fL MCH 28.9 (25.0-35.0) pg MCHC 32.9 (31.0-37.0) g/dL RDW 14.4 (11.5-15.5) % Plt Count 206 (150-450) k/uL MPV 8.8 Neutrophils % 71 % Lymphocytes % 22 % Monocytes % 3 % Eosinophils % 1 % Basophils % 1 % Neutrophils # 4.5 (1.3-7.7) k/uL Lymphocytes # 1.4 (1.0-4.8) k/uL Monocytes # 0.2 (0-1.0) k/uL Eosinophils # 0.1 (0-0.7) k/uL Basophils # 0.0 (0-0.2) k/uL PT 10.3 (9.0-12.0) sec INR 1.0 (<1.2) APTT 30.2 H (22.0-30.0) sec Sodium 137 (137-145) mmol/L Potassium 4.3 (3.5-5.1) mmol/L Chloride 100 (98-107) mmol/L Carbon Dioxide 28 (22-30) mmol/L Anion Gap 9 mmol/L BUN 24 H (7-17) mg/dL Creatinine 1.16 H (0.52-1.04) mg/dL Est GFR (CKD-EPI)AfAm 51 (>60 ml/min/1.73 sqM) Est GFR (CKD-EPI)NonAf 44 (>60 ml/min/1.73 sqM) Glucose 95 (74-99) mg/dL Plasma Lactic Acid Gurinder (0.7-2.0) mmol/L Calcium 8.9 (8.4-10.2) mg/dL Total Bilirubin 0.6 (0.2-1.3) mg/dL AST 25 (14-36) U/L ALT 11 (4-34) U/L Alkaline Phosphatase 81 (38-126) U/L Total Protein 7.1 (6.3-8.2) g/dL Albumin 4.3 (3.5-5.0) g/dL Urine Color Urine Appearance (Clear) Urine pH (5.0-8.0) Ur Specific Gorin (1.001-1.035) Urine Protein (Negative) Urine Glucose (UA) (Negative) Urine Ketones (Negative) Urine Blood (Negative) Urine Nitrite (Negative) Urine Bilirubin (Negative) Urine Urobilinogen (<2.0) mg/dL Ur Leukocyte Esterase (Negative) 01/23/21 01/23/21 Range/Units 15:12 15:40 WBC (3.8-10.6) k/uL RBC (3.80-5.40) m/uL Hgb (11.4-16.0) gm/dL Hct (34.0-46.0) % MCV (80.0-100.0) fL MCH (25.0-35.0) pg MCHC (31.0-37.0) g/dL RDW (11.5-15.5) % Plt Count (150-450) k/uL MPV Neutrophils % % Lymphocytes % % Monocytes % % Eosinophils % % Basophils % % Neutrophils # (1.3-7.7) k/uL Lymphocytes # (1.0-4.8) k/uL Monocytes # (0-1.0) k/uL Eosinophils # (0-0.7) k/uL Basophils # (0-0.2) k/uL PT (9.0-12.0) sec INR (<1.2) APTT (22.0-30.0) sec Sodium (137-145) mmol/L Potassium (3.5-5.1) mmol/L Chloride (98-107) mmol/L Carbon Dioxide (22-30) mmol/L Anion Gap mmol/L BUN (7-17) mg/dL Creatinine (0.52-1.04) mg/dL Est GFR (CKD-EPI)AfAm (>60 ml/min/1.73 sqM) Est GFR (CKD-EPI)NonAf (>60 ml/min/1.73 sqM) Glucose (74-99) mg/dL Plasma Lactic Acid Gurinder 0.8 (0.7-2.0) mmol/L Calcium (8.4-10.2) mg/dL Total Bilirubin (0.2-1.3) mg/dL AST (14-36) U/L ALT (4-34) U/L Alkaline Phosphatase (38-126) U/L Total Protein (6.3-8.2) g/dL Albumin (3.5-5.0) g/dL Urine Color Light Yellow Urine Appearance Clear (Clear) Urine pH 5.5 (5.0-8.0) Ur Specific Gorin 1.005 (1.001-1.035) Urine Protein Negative (Negative) Urine Glucose (UA) Negative (Negative) Urine Ketones Negative (Negative) Urine Blood Negative (Negative) Urine Nitrite Negative (Negative) Urine Bilirubin Negative (Negative) Urine Urobilinogen <2.0 (<2.0) mg/dL Ur Leukocyte Esterase Negative (Negative) - EKG Data -: EKG Interpreted by [place] EKG Comments: EKG obtained at 1503, rate 70 rhythm is narrow complex irregular consistent with atrial fibrillation there are no acute ST elevations or depressions there is no evidence of acute ischemia or infarction. Disposition Clinical Impression: Hemorrhoids, Dehydration Disposition: HOME SELF-CARE Condition: Stable Instructions (If sedation given, give patient instructions): Gastrointestinal Bleeding (ED) Is patient prescribed a controlled substance at d/c from ED?: No Referrals: Dusty Madsen MD [Primary Care Provider] - 1-2 days
[2021-01-23 15:22] LABS: Basophils % (A) 1 %; Eosinophils # (A) 0.1 k/uL (0-0.7); Eosinophils % (A) 1 %; HCT 37.3 % (34.0-46.0); HGB 12.3 gm/dL (11.4-16.0); Lymphocytes # (A) 1.4 k/uL (1.0-4.8); Lymphocytes % (A) 22 %; MCH 28.9 pg (25.0-35.0); MCHC 32.9 g/dL (31.0-37.0); MCV 87.9 fL (80.0-100.0); Mean Platelet Volume 8.8; Monocytes # (A) 0.2 k/uL (0-1.0); Monocytes % (A) 3 %; Neutrophils # (A) 4.5 k/uL (1.3-7.7); Neutrophils % (A) 71 %; Platelet Count 206 k/uL (150-450); RBC 4.24 m/uL (3.80-5.40); RDW 14.4 % (11.5-15.5); WBC 6.3 k/uL (3.8-10.6)
[2021-01-23 15:30] LABS: Albumin 4.3 g/dL (3.5-5.0); Calcium 8.9 mg/dL (8.4-10.2); Potassium 4.3 mmol/L (3.5-5.1); Total Bilirubin 0.6 mg/dL (0.2-1.3); Total Protein 7.1 g/dL (6.3-8.2)
[2021-01-23 15:31] LABS: Partial Thromboplastin Time 30.2 sec (22.0-30.0); Prothrombin Time 10.3 sec (9.0-12.0)
[2021-01-23 15:41] VITALS: RESP 16
[2021-01-23 15:52] LABS: Appearance,Urine Clear (Clear); Bilirubin,Urine Negative (Negative); Blood,Urine Negative (Negative); Color,Urine Light Yellow; Glucose,Urine (UA) Negative (Negative); Ketones,Urine Negative (Negative); Leukocyte Esterase,Urine Negative (Negative); Nitrite,Urine Negative (Negative); PH, Urine 5.5 (5.0-8.0); Protein,Urine Negative (Negative); Specific Gravity,Urine 1.005 (1.001-1.035); Urobilinogen,Urine <2.0 mg/dL (<2.0)
[2021-01-23 16:35] VITALS: BP 150/62; PULSE 66
== END 2021-01-23 16:34 | disposition home or self-care (01) ==
LOC: EC 13:50
DX: K64.4 Residual hemorrhoidal skin tags (principal); E86.0 Dehydration; I10 Essential (primary) hypertension; E78.5 Hyperlipidemia, unspecified; Z79.890 Hormone replacement therapy; Z79.899 Other long term (current) drug therapy; Z79.01 Long term (current) use of anticoagulants; Z85.3 Personal history of malignant neoplasm of breast; Z87.19 Personal history of other diseases of the digestive system; Z87.891 Personal history of nicotine dependence
CPT/HCPCS: 36415; 80053; 83605; 85025; 85610; 85730; 93005; 99285

== ENCOUNTER 2021-02-23 20:24 | Inpatient (IN) | payer MEDICARE, BC ==
--- NOTE | 2021-02-23 21:09 | XR ---
EXAMINATION TYPE: XR chest 1V portable DATE OF EXAM: 02/23/2021 COMPARISON: 03/19/2020 HISTORY: Short of breath TECHNIQUE: FINDINGS: Heart is enlarged. There is some coarse interstitial infiltrate in the mid and lower lung f ields. There is some mild infiltrate lateral right lung base. There are chest leads. There are no hil ar masses. Thoracic aorta is atheromatous. IMPRESSION: Interstitial mild edema could relate to mild heart failure and is a change compared to ol d exam. Cardiomegaly not significantly different.
[2021-02-23] MEDS ORDERED: FUROSEMIDE 10 MG/ML 4 ML VIAL IV STA (21:20)
[2021-02-23 21:30] LABS: Basophils # (A) 0.1 k/uL (0-0.2); Basophils % (A) 1 %; Eosinophils # (A) 0.1 k/uL (0-0.7); Eosinophils % (A) 2 %; HCT 37.4 % (34.0-46.0); HGB 11.6 gm/dL (11.4-16.0); Hypochromasia Slight; Lymphocytes # (A) 1.3 k/uL (1.0-4.8); Lymphocytes % (A) 23 %; MCH 28.3 pg (25.0-35.0); MCHC 31.1 g/dL (31.0-37.0); MCV 90.8 fL (80.0-100.0); Mean Platelet Volume 8.6; Monocytes # (A) 0.5 k/uL (0-1.0); Monocytes % (A) 8 %; Neutrophils # (A) 3.6 k/uL (1.3-7.7); Neutrophils % (A) 64 %; Platelet Count 216 k/uL (150-450); RBC 4.12 m/uL (3.80-5.40); RDW 14.8 % (11.5-15.5); WBC 5.7 k/uL (3.8-10.6)
[2021-02-23 21:35] LABS: Partial Thromboplastin Time 29.1 sec (22.0-30.0); Prothrombin Time 10.7 sec (9.0-12.0)
[2021-02-23] MEDS ORDERED: LORazepam 1 MG TAB PO STA (21:37)
[2021-02-23 21:38] LABS: Potassium 4.3 mmol/L (3.5-5.1)
[2021-02-23 21:39] LABS: Albumin 3.8 g/dL (3.5-5.0); Calcium 8.8 mg/dL (8.4-10.2); Total Bilirubin 0.4 mg/dL (0.2-1.3); Total Protein 6.4 g/dL (6.3-8.2)
--- NOTE | 2021-02-23 22:01 | ED ---
SOB HPI - General Chief Complaint: Shortness of Breath Stated Complaint: SOB Time Seen by Provider: 02/23/21 20:42 Source: patient Mode of arrival: wheelchair Limitations: no limitations - History of Present Illness Initial Comments: Ginette abrams 85-year-old female with a history of atrial fibrillation, CHF and COPD. Patient follows with cardiology out [facility] area patient presents to the emergency Department today with a complaint of 2 days of shortness of breath. Patient states that with any exertion she feels very short of breath and feels like she developed tightness in her chest. No diaphoresis or lightheadedness. No wheezing. No cough fever or chills. No known sick contacts. patient does note that she did not take her Lasix today or yesterday. - Related Data Home Medications Medication Instructions Recorded Confirmed Losartan Potassium 100 mg PO HS 01/27/18 02/23/21 Pravastatin Sodium [Pravachol] 80 mg PO HS 01/27/18 02/23/21 amLODIPine BESYLATE [Norvasc] 5 mg PO DAILY 01/27/18 02/23/21 Levothyroxine Sodium [Euthyrox] 75 mcg PO DAILY 03/24/20 02/23/21 carvediloL [Coreg] 6.25 mg PO BID 01/23/21 02/23/21 Previous Rx's Medication Instructions Recorded Apixaban [Eliquis] 2.5 mg PO BID #60 tablet 03/27/20 Furosemide [Lasix] 40 mg PO DAILY #30 tab 03/27/20 Allergies Allergy/AdvReac Type Severity Reaction Status Date / Time No Known Allergies Allergy Verified 02/23/21 20:59 Review of Systems ROS Statement: Those systems with pertinent positive or pertinent negative responses have been documented in the HPI. ROS Other: All systems not noted in ROS Statement are negative. Past Medical History Past Medical History: Cancer, COPD, Hyperlipidemia, Hypertension Additional Past Medical History / Comment(s): hx of left breast ca with radiation 1991 History of Any Multi-Drug Resistant Organisms: None Reported Past Surgical History: Hysterectomy Additional Past Surgical History / Comment(s): neck sx, left breast lumpectomy. right elbow bursectomy Past Anesthesia/Blood Transfusion Reactions: No Reported Reaction Past Psychological History: No Psychological Hx Reported Smoking Status: Former smoker Past Alcohol Use History: Occasional Past Drug Use History: None Reported - Past Family History Mother Family Medical History: No Reported History Father Additional Family Medical History / Comment(s): Father fairly young as complications of adhesions. General Exam - General Exam Comments Initial Comments: Physical Exam GENERAL: Patient is well-developed and well-nourished. Patient is nontoxic and well- hydrated and is in no distress. HENT: Normocephalic, Atraumatic. EYES: PERRL, EOMI PULMONARY: Crackles at bases, tachypnea CARDIOVASCULAR: Irregularly irregular Murmur No lower extremity edema ABDOMEN: Soft and nontender with normal bowel sounds. SKIN: Skin is clear with no lesions or rashes and otherwise unremarkable. : Deferred NEUROLOGIC: Patient is alert and oriented x3. Moving all extremities spontaneously MUSCULOSKELETAL: Normal extremities with adequate strength and full range of motion. No lower extremity swelling or edema. No calf tenderness. PSYCHIATRIC: Normal psychiatric evaluation. Limitations: no limitations Course Vital Signs 02/23/21 02/23/21 02/23/21 20:25 21:43 22:33 Temperature 97.5 F L 98.1 F Pulse Rate 78 80 63 Respiratory 20 20 18 Rate Blood Pressure 147/83 151/82 138/66 O2 Sat by Pulse 92 L 93 L 95 Oximetry Medical Decision Making - Medical Decision Making the patient was seen and evaluated history was obtained from patient and family at bedside, Patient on 2L NC - not usually on home oxygen patient has a history of CHF she has been noncompliant with her Lasix she has shortness of breath and chest tightness with exertion Labs and imaging were obtained Chest x-ray consistent with fluid overload Labs are unremarkable troponin not elevated Patient was treated with IV lasix, upon ambulation to the restroom patient with hypoxia to 88%, chest pressure and asking to be placed back on oxygen Considering the patient's age, risk factors, history, hypoxia and chest pressure decision was made to admit patient for CHF exacerbation Patient is not wheezing, I do not feel there is COPD component, patient has no history of using breathing treatments despite documented history of COPD - Lab Data Result diagrams: 02/23/21 21:18 02/23/21 21:18 Lab Results 02/23/21 02/23/21 02/23/21 Range/Units 21:18 21:18 21:18 WBC 5.7 (3.8-10.6) k/uL RBC 4.12 (3.80-5.40) m/uL Hgb 11.6 (11.4-16.0) gm/dL Hct 37.4 (34.0-46.0) % MCV 90.8 (80.0-100.0) fL MCH 28.3 (25.0-35.0) pg MCHC 31.1 (31.0-37.0) g/dL RDW 14.8 (11.5-15.5) % Plt Count 216 (150-450) k/uL MPV 8.6 Neutrophils % 64 % Lymphocytes % 23 % Monocytes % 8 % Eosinophils % 2 % Basophils % 1 % Neutrophils # 3.6 (1.3-7.7) k/uL Lymphocytes # 1.3 (1.0-4.8) k/uL Monocytes # 0.5 (0-1.0) k/uL Eosinophils # 0.1 (0-0.7) k/uL Basophils # 0.1 (0-0.2) k/uL Hypochromasia Slight PT 10.7 (9.0-12.0) sec INR 1.0 (<1.2) APTT 29.1 (22.0-30.0) sec Sodium 138 (137-145) mmol/L Potassium 4.3 (3.5-5.1) mmol/L Chloride 104 (98-107) mmol/L Carbon Dioxide 25 (22-30) mmol/L Anion Gap 9 mmol/L BUN 21 H (7-17) mg/dL Creatinine 1.04 (0.52-1.04) mg/dL Est GFR (CKD-EPI)AfAm 58 (>60 ml/min/1.73 sqM) Est GFR (CKD-EPI)NonAf 50 (>60 ml/min/1.73 sqM) Glucose 110 H (74-99) mg/dL Plasma Lactic Acid Gurinder (0.7-2.0) mmol/L Calcium 8.8 (8.4-10.2) mg/dL Total Bilirubin 0.4 (0.2-1.3) mg/dL AST 27 (14-36) U/L ALT 21 (4-34) U/L Alkaline Phosphatase 81 (38-126) U/L Troponin I (0.000-0.034) ng/mL NT-Pro-B Natriuret Pep pg/mL Total Protein 6.4 (6.3-8.2) g/dL Albumin 3.8 (3.5-5.0) g/dL 02/23/21 02/23/21 02/23/21 Range/Units 21:18 21:18 21:18 WBC (3.8-10.6) k/uL RBC (3.80-5.40) m/uL Hgb (11.4-16.0) gm/dL Hct (34.0-46.0) % MCV (80.0-100.0) fL MCH (25.0-35.0) pg MCHC (31.0-37.0) g/dL RDW (11.5-15.5) % Plt Count (150-450) k/uL MPV Neutrophils % % Lymphocytes % % Monocytes % % Eosinophils % % Basophils % % Neutrophils # (1.3-7.7) k/uL Lymphocytes # (1.0-4.8) k/uL Monocytes # (0-1.0) k/uL Eosinophils # (0-0.7) k/uL Basophils # (0-0.2) k/uL Hypochromasia PT (9.0-12.0) sec INR (<1.2) APTT (22.0-30.0) sec Sodium (137-145) mmol/L Potassium (3.5-5.1) mmol/L Chloride (98-107) mmol/L Carbon Dioxide (22-30) mmol/L Anion Gap mmol/L BUN (7-17) mg/dL Creatinine (0.52-1.04) mg/dL Est GFR (CKD-EPI)AfAm (>60 ml/min/1.73 sqM) Est GFR (CKD-EPI)NonAf (>60 ml/min/1.73 sqM) Glucose (74-99) mg/dL Plasma Lactic Acid Gurinder 0.7 (0.7-2.0) mmol/L Calcium (8.4-10.2) mg/dL Total Bilirubin (0.2-1.3) mg/dL AST (14-36) U/L ALT (4-34) U/L Alkaline Phosphatase (38-126) U/L Troponin I <0.012 (0.000-0.034) ng/mL NT-Pro-B Natriuret Pep 5660 pg/mL Total Protein (6.3-8.2) g/dL Albumin (3.5-5.0) g/dL - EKG Data -: EKG Interpreted by Me EKG Comments: EKG was obtained at 2036 rate is 86 rhythm is A. fib with frequent PVCs no acute ST elevations or depressions no evidence of ischemia or infarction. Disposition Clinical Impression: Congestive heart failure (CHF) Disposition: ADMITTED IP TO THIS HOSP Condition: Serious
--- NOTE | 2021-02-23 23:46 | P.HPIM ---
History of Present Illness H&P Date: 02/23/21 Patient is an 85-year-old female with a PMH of A. fib on Eliquis, diastolic CHF, hypertension, hyperlipidemia, and hypothyroidism who presented to the emergency room with complaints of shortness of breath. The patient reports that over the past 1 week, she has had gradually worsening exercise tolerance where she gets winded with minimal activity and has associated chest tightness. She notes that her symptoms were very strongly associated with exertion but after arriving at the hospital and after receiving oxygen, she feels back to her baseline. She reports having only missed 1 dose of her Lasix. Denied any changes in her diet or increased intake of fluid or salty foods. Denied experiencing nausea, vomiting, lightheadedness, or palpitations. Denied any chest discomfort at rest. Denied wheezing, cough, fever, chills. Denied lower extremity swelling, recent travel, or sick contacts. Denied orthopnea or paroxysmal nocturnal dyspnea and only uses one pillow at bedtime. Chest x-ray in the emergency room was consistent with mild heart failure. EKG revealed A. fib with PVCs at 86 bpm with QTC 437. Laboratory evaluation was remarkable for a proBNP of 5660, and troponin less than 0.012. Review of systems: Pertinent positives and negatives as discussed in HPI, a complete review of systems was performed and all other systems are negative. Physical examination: General: non toxic, no distress, appears at stated age, normal weight Derm: no unusual rashes/lesions no unusual ecchymoses, warm, dry Head: atraumatic, normocephalic, symmetric Eyes: EOMI, no lid lag, anicteric sclera, pupils equal round reactive to light ENT: Nose and ears atraumatic, no thrush, no pharyngeal erythema Neck: No thyromegaly, no cervical lymphadenopathy, trachea midline, supple Mouth: no lip lesion, mucus membranes moist Cardiovascular: S1S2 reg, no murmur, positive posterior tibial pulse bilateral, no edema, capillary refill less than 2 seconds Lungs: CTA bilateral, no rhonchi, no rales , no accessory muscle use Abdominal: soft, nontender to palpation, no guarding, no appreciable organome ying, normal bowel sounds Ext: no gross muscle atrophy, muscle strength 5 out of 5 in all 4 extremities grossly, no contractures, Neuro: CN II-XI grossly intact, light touch intact all 4 extremities, finger to nose within normal limits, Psych: Alert, oriented, appropriate affect Assessment/plan Acute diastolic CHF exacerbation -Continue with Lasix -Cardiology consulted -Supplemental oxygen -Intake and output -Daily weights -Fluid restriction -Monitor electrolytes daily Chronic conditions: A. fib, hypertension, hyperlipidemia, hypothyroidism -Continue with home meds DVT prophylaxis -Eliquis The patient is admitted with an anticipated less than 2 midnight stay for evaluation of CHF. CODE STATUS: Full Code Discussed with: Patient, Son, Anticipated discharge date: in am Anticipated discharge place: Home Past Medical History Past Medical History: Cancer, COPD, Hyperlipidemia, Hypertension Additional Past Medical History / Comment(s): hx of left breast ca with radiation 1991 History of Any Multi-Drug Resistant Organisms: None Reported Past Surgical History: Hysterectomy Additional Past Surgical History / Comment(s): neck sx, left breast lumpectomy. right elbow bursectomy Past Anesthesia/Blood Transfusion Reactions: No Reported Reaction Past Psychological History: No Psychological Hx Reported Smoking Status: Former smoker Past Alcohol Use History: Occasional Past Drug Use History: None Reported - Past Family History Mother Family Medical History: No Reported History Father Additional Family Medical History / Comment(s): Father fairly young as complications of adhesions. Medications and Allergies Home Medications Medication Instructions Recorded Confirmed Type Losartan Potassium 100 mg PO HS 01/27/18 02/23/21 History Pravastatin Sodium [Pravachol] 80 mg PO HS 01/27/18 02/23/21 History amLODIPine BESYLATE [Norvasc] 5 mg PO DAILY 01/27/18 02/23/21 History Levothyroxine Sodium [Euthyrox] 75 mcg PO DAILY 03/24/20 02/23/21 History Apixaban [Eliquis] 2.5 mg PO BID #60 tablet 03/27/20 02/23/21 Rx Furosemide [Lasix] 40 mg PO DAILY #30 tab 03/27/20 02/23/21 Rx carvediloL [Coreg] 6.25 mg PO BID 01/23/21 02/23/21 History Allergies Allergy/AdvReac Type Severity Reaction Status Date / Time No Known Allergies Allergy Verified 02/23/21 20:59 Physical Exam Vitals: Vital Signs Temp Pulse Resp BP Pulse Ox 02/23/21 22:33 98.1 F 63 18 138/66 95 02/23/21 21:43 80 20 151/82 93 L 02/23/21 20:25 97.5 F L 78 20 147/83 92 L Intake and Output 02/23/21 02/23/21 02/24/21 14:59 22:59 06:59 Other: Weight 45.359 kg Results CBC & Chem 7: 02/23/21 21:18 02/23/21 21:18 Labs: Abnormal Lab Results - Last 24 Hours (Table) 02/23/21 Range/Units 21:18 BUN 21 H (7-17) mg/dL Glucose 110 H (74-99) mg/dL Thrombosis Risk Factor Assmnt - Choose All That Apply Any of the Below Risk Factors Present?: Yes Each Factor Represents 1 point: Abnormal pulmonary function (COPD) Other Risk Factors: Yes Each Risk Factor Represents 2 Points: Malignancy Each Risk Factor Represents 3 Points: Age 75 years or older Other congenital or acquired thrombophilia - If yes, enter type in comment: No Thrombosis Risk Factor Assessment Total Risk Factor Score: 6 Thrombosis Risk Factor Assessment Level: High Risk
[2021-02-24 04:20] LABS: African American GFR (CKD) 76 (>60 ml/min/1.73 sqM); Anion Gap 6 mmol/L; Blood Urea Nitrogen 21 mg/dL (7-17); Calcium 8.4 mg/dL (8.4-10.2); Carbon Dioxide 28 mmol/L (22-30); Chloride 102 mmol/L (98-107); Glucose 98 mg/dL (74-99); Magnesium 2.1 mg/dL (1.6-2.3); Non-African American GFR(CKD) 66 (>60 ml/min/1.73 sqM); Potassium 3.7 mmol/L (3.5-5.1); Sodium 136 mmol/L (137-145)
[2021-02-24] MEDS: LEVOTHYROXINE 75 MCG TAB PO SCH (05:59)
[2021-02-24] MEDS: FUROSEMIDE 10 MG/ML 4 ML VIAL IV SCH ×2 (08:50→20:33)
[2021-02-24] MEDS: carvediloL 6.25 MG TAB PO SCH ×2 (08:51→20:31)
[2021-02-24] MEDS: APIXABAN 2.5 MG TABLET PO SCH ×2 (08:51→20:31)
[2021-02-24] MEDS: amLODIPine 5 MG TAB PO SCH (08:51)
[2021-02-24 11:08] VITALS: BMI 19.8
--- NOTE | 2021-02-24 12:15 | P.CRDCN ---
History of Present Illness Consult date: 02/24/21 Requesting physician: Trina Murray Reason for Consult (text): CHF Chief complaint: progressively worsening shortness of breath History of present illness: This pleasant 85-year-old female patient who follows primarily with a television journalist in [place]. Was seen in the past by Dr. Chaudhry in the office. 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 She has been recommended surgical intervention in the past and is apparently awaiting consultation upon her return to [place] with a surgeon who does minimally invasive mitral valve. She presented to the emergency department with compla ints of progressively worsening shortness of breath over the past few days. They have any edema or weight gain. Denies any orthopnea or PND. EKG on admission showed atrial fibrillation with controlled ventricular response with PVCs. Chest x-ray on admission showed interstitial mild edema related to mild heart failure as change compared to old female, currently different. NT proBNP was elevated at 5660. Troponin was negative 1. Vital signs are stable and she is afebrile. She's been initiated on IV Lasix 40 mg every 12 hours. Upon examination patient is resting comfortably in bed. She's been on oxygen which was recently removed by the nursing staff and O2 sats on room air running in the high 80s. She feels her breathing is better. Denies any chest discomfort. Denies any palpitations, dizziness, lightheadedness or syncope. She verbalizes that she was initially planning to return to [place] in March but considering this admission and her recent issues she is considering going back sooner. She was apparently seen and evaluated at [facility] for valve surgery however was not comfortable with the surgeon she saw and does not wish to pursue surgery there at this time. Past Medical History Past Medical History: Cancer, COPD, Hyperlipidemia, Hypertension Additional Past Medical History / Comment(s): hx of left breast ca with radiation 1991 History of Any Multi-Drug Resistant Organisms: None Reported Past Surgical History: Hysterectomy Additional Past Surgical History / Comment(s): neck sx, left breast lumpectomy. right elbow bursectomy Past Anesthesia/Blood Transfusion Reactions: No Reported Reaction Past Psychological History: No Psychological Hx Reported Smoking Status: Former smoker Past Alcohol Use History: Occasional Past Drug Use History: None Reported - Past Family History Mother Family Medical History: No Reported History Father Additional Family Medical History / Comment(s): Father fairly young as complications of adhesions. Medications and Allergies Home Medications Medication Instructions Recorded Confirmed Type Losartan Potassium 100 mg PO HS 01/27/18 02/23/21 History Pravastatin Sodium [Pravachol] 80 mg PO HS 01/27/18 02/23/21 History amLODIPine BESYLATE [Norvasc] 5 mg PO DAILY 01/27/18 02/23/21 History Levothyroxine Sodium [Euthyrox] 75 mcg PO DAILY 03/24/20 02/23/21 History Apixaban [Eliquis] 2.5 mg PO BID #60 tablet 03/27/20 02/23/21 Rx Furosemide [Lasix] 40 mg PO DAILY #30 tab 03/27/20 02/23/21 Rx carvediloL [Coreg] 6.25 mg PO BID 01/23/21 02/23/21 History Allergies Allergy/AdvReac Type Severity Reaction Status Date / Time No Known Allergies Allergy Verified 02/23/21 20:59 Physical Exam Vitals: Vital Signs Temp Pulse Pulse Resp BP BP Pulse Ox 02/24/21 08:51 70 138/80 89 L 02/24/21 08:00 20 02/24/21 04:33 98.3 F 70 20 131/78 95 02/23/21 22:33 98.1 F 63 18 138/66 95 02/23/21 22:10 98.9 F 69 20 150/81 96 02/23/21 21:43 80 20 151/82 93 L 02/23/21 20:25 97.5 F L 78 20 147/83 92 L Intake and Output 02/23/21 02/24/21 02/24/21 22:59 06:59 14:59 Intake Total 100 Balance 100 Intake: Oral 100 Other: # Voids 1 Weight 45.359 kg 43 kg PHYSICAL EXAMINATION: This is a 85-year-old female in no apparent distress at the time of my examination. VITAL SIGNS: Blood pressure 138/80, heart rate 70, respirations 20, temp 98.3F. Patient is 89 % on room air, previously 95% on 2 L via nasal cannula. HEENT: Head is atraumatic, normocephalic. Pupils are equal, round. Sclerae anicteric. Conjunctivae are clear. Mucous membranes of the mouth are moist. Neck is supple. There is no elevated jugular venous pressure. No carotid bruit is heard. CHEST EXAMINATION: Lungs reveal crackles bilateral lower lobes. No wheezes or rhonchi. Respirations even and nonlabored. HEART EXAMINATION: Heart irregular rate and rhythm, positive S1 and S2. With a grade 3/6 holosystolic murmur at the apex radiating to the axilla. ABDOMEN: Soft, nontender. Bowel sounds are heard. No organomegaly noted. EXTREMITIES: 2+ peripheral pulses with no evidence of peripheral edema and no calf tenderness noted. NEUROLOGIC EXAMINATION: Patient is awake, alert and oriented x3. Results 02/23/21 21:18 02/24/21 03:43 Cardiac Enzymes 02/23/21 02/23/21 Range/Units 21:18 21:18 AST 27 (14-36) U/L Troponin I <0.012 (0.000-0.034) ng/mL Coagulation 02/23/21 Range/Units 21:18 PT 10.7 (9.0-12.0) sec APTT 29.1 (22.0-30.0) sec CBC 02/23/21 Range/Units 21:18 WBC 5.7 (3.8-10.6) k/uL RBC 4.12 (3.80-5.40) m/uL Hgb 11.6 (11.4-16.0) gm/dL Hct 37.4 (34.0-46.0) % Plt Count 216 (150-450) k/uL Comprehensive Metabolic Panel 02/23/21 02/24/21 Range/Units 21:18 03:43 Sodium 138 136 L (137-145) mmol/L Potassium 4.3 3.7 (3.5-5.1) mmol/L Chloride 104 102 (98-107) mmol/L Carbon Dioxide 25 28 (22-30) mmol/L BUN 21 H 21 H (7-17) mg/dL Creatinine 1.04 0.83 (0.52-1.04) mg/dL Glucose 110 H 98 (74-99) mg/dL Calcium 8.8 8.4 (8.4-10.2) mg/dL AST 27 (14-36) U/L ALT 21 (4-34) U/L Alkaline Phosphatase 81 (38-126) U/L Total Protein 6.4 (6.3-8.2) g/dL Albumin 3.8 (3.5-5.0) g/dL Current Medications Generic Name Dose Route Start Last Admin Trade Name Lida PRN Reason Stop Dose Admin Amlodipine Besylate 5 mg 02/24/21 09:00 02/24/21 08:51 Amlodipine 5 Mg Tab PO 5 mg DAILY VALDO Administration Apixaban 2.5 mg 02/24/21 09:00 02/24/21 08:51 Apixaban 2.5 Mg Tablet PO 2.5 mg BID VALDO Administration Protocol Carvedilol 6.25 mg 02/24/21 09:00 02/24/21 08:51 Carvedilol 6.25 Mg Tab PO 6.25 mg BID VALDO Administration Furosemide 40 mg 02/24/21 09:00 02/24/21 08:50 Furosemide 10 Mg/Ml 4 Ml Vial IV 40 mg Q12HR VALDO Administration Levothyroxine Sodium 75 mcg 02/24/21 06:30 02/24/21 05:59 Levothyroxine 75 Mcg Tab PO 75 mcg DAILY@0630 VALDO Administration Losartan Potassium 100 mg 02/24/21 21:00 Losartan 50 Mg Tab PO HS VALDO Pravastatin Sodium 80 mg 02/24/21 21:00 Pravastatin Sodium 80 Mg Tab PO HS VALDO Intake and Output 02/23/21 02/24/21 02/24/21 22:59 06:59 14:59 Intake Total 100 Balance 100 Intake: Oral 100 Other: # Voids 1 Weight 45.359 kg 43 kg 02/23/21 21:18 02/24/21 03:43 Assessment and Plan Assessment: #1 acute on chronic congestive heart failure secondary to diastolic dysfunction as well as valvular heart disease #2 known severe mitral regurgitation patient is awaiting evaluation the cardiothoracic surgeon in [place] upon her return #3 hypertension #4 hyperlipidemia #5 hypothyroidism Plan: From cardiology's perspective we'll obtain a 2-D echo with Doppler study to assess cardiac structure and function and reevaluate the mitral valve. Continue IV Lasix. Continue monitor renal function, electrolytes and daily weights as well as intake and output. We will continue to follow the patient provide further recommendations accordingly. The above dictated assessment and findings were discussed with signing physician. The impression and plan of care have been directed as dictated. Silvia Barger, Nurse Practitioner, acting as scribe for signing physician.
--- NOTE | 2021-02-24 13:05 | ECHOF ---
Referral Reason:CHF MEASUREMENTS -------- HEIGHT: 152.4 cm WEIGHT: 42.6 kg BP: 131/78 RVIDd: 2.4 cm (< 3.3) IVSd: 1.1 cm (0.6 - 1.1) LVIDd: 4.7 cm (3.9 - 5.3) LVPWd: 1.1 cm (0.6 - 1.1) IVSs: 1.6 cm LVIDs: 3.2 cm LVPWs: 1.5 cm LAESV Index (A-L): 188.64 ml/m Ao Diam: 2.3 cm (2.0 - 3.7) AV Cusp: 1.6 cm (1.5 - 2.6) MV EXCURSION: 26.291 mm (> 18.000) MV EF SLOPE: 49 mm/s (70 - 150) EPSS: 0.2 cm RAP: 5.00 mmHg RVSP: 31.59 mmHg FINDINGS -------- This was a technically adequate study. The left ventricular size is normal. There is borderline concentric left ventricular hypertrophy. Overall left ventricular systolic function is normal with, an EF between 55 - 60 %. The right ventricle is normal in size. LA is severely dilated >40 ml/m2 The right atrial size is normal. Interatrial and interventricular septum intact. The aortic valve is trileaflet and appears structurally normal. There is mild aortic valve sclerosi s. There is no evidence of aortic regurgitation. There is no evidence of aortic stenosis. Severe mitral regurgitation is present. Mild tricuspid regurgitation present. There is no evidence of pulmonary hypertension. The right v entricular systolic pressure, as measured by Doppler, is 31.59mmHg. There is no pulmonic regurgitation present. The aortic root size is normal. The inferior vena cava is mildly dilated. There is no pericardial effusion. CONCLUSIONS -------- 1. The left ventricular size is normal. 2. There is borderline concentric left ventricular hypertrophy. 3. Overall left ventricular systolic function is normal with, an EF between 55 - 60 %. 4. LA is severely dilated >40 ml/m2 5. There is mild aortic valve sclerosis. 6. Severe mitral regurgitation is present secondary to flail posterior mitral leaflet 7. Mild tricuspid regurgitation present. 8. The inferior vena cava is mildly dilated. PARALEGAL INSTRUCTOR: Shelly Person RDCS
--- NOTE | 2021-02-24 14:27 | P.PN ---
Subjective Progress Note Date: 02/24/21 No new complaints. Improving breathing. Diuresing well. Cardiology following. Objective - Vital Signs Vital signs: Vital Signs Temp 97.8 F 02/24/21 13:00 Pulse 65 02/24/21 13:00 Resp 17 02/24/21 13:00 BP 120/64 02/24/21 13:00 Pulse Ox 96 02/24/21 13:00 Intake & Output 02/23/21 02/24/21 02/24/21 18:59 06:59 18:59 Intake Total 100 Balance 100 Weight 43 kg 43 kg Intake: Oral 100 Other: Voiding Method Toilet # Voids 1 - Exam Gen: awake, alert HEENT: normocephalic, atraumatic, good hearing acuity, moist mucous membranes Resp: good air exchange, breathing comfortably with no accessory muscle use, mild basilar crackles worse on the right CVS: good distal perfusion x 4, RRR, GI: soft, NTTP, ND : no SPT, no CVAT, ibarra catheter not present MSK: no pitting edema, no clubbing Neuro: non-focal, moving all extremities Psych: cooperative, euthymic mood - Labs CBC & Chem 7: 02/23/21 21:18 02/24/21 03:43 Labs: Abnormal Lab Results - Last 24 Hours (Table) 02/23/21 02/24/21 Range/Units 21:18 03:43 Sodium 136 L (137-145) mmol/L BUN 21 H 21 H (7-17) mg/dL Glucose 110 H (74-99) mg/dL Assessment and Plan Assessment: Acute diastolic CHF exacerbation Severe MR -Continue with Lasix -Cardiology consulted -Supplemental oxygen -Intake and output -Daily weights -Fluid restriction -Monitor electrolytes daily -would benefit from dapa or empagliflozin Chronic conditions: A. fib, hypertension, hyperlipidemia, hypothyroidism -Continue with home meds DVT prophylaxis -Eliquis The patient is admitted with an anticipated less than 2 midnight stay for evaluation of CHF. CODE STATUS: Full Code Discussed with: Patient, Son, Anticipated discharge date: in am Anticipated discharge place: Home
[2021-02-24] MEDS: PRAVASTATIN SODIUM 80 MG TAB PO SCH (20:31)
[2021-02-24] MEDS: LOSARTAN 50 MG TAB PO SCH (20:31)
[2021-02-25] MEDS: LEVOTHYROXINE 75 MCG TAB PO SCH (05:43)
[2021-02-25] MEDS: APIXABAN 2.5 MG TABLET PO SCH ×2 (08:06→20:56)
[2021-02-25] MEDS: amLODIPine 5 MG TAB PO SCH (08:25)
[2021-02-25] MEDS: carvediloL 6.25 MG TAB PO SCH ×2 (08:26→20:55)
[2021-02-25] MEDS: FUROSEMIDE 10 MG/ML 4 ML VIAL IV SCH (08:26)
[2021-02-25 09:32] LABS: African American GFR (CKD) 60.3 (60.0-200.0); Calcium 8.9 mg/dL (8.7-10.3); Non-African American GFR(CKD) 52.1 (60.0-200.0); Potassium 3.8 mmol/L (3.5-5.5)
--- NOTE | 2021-02-25 11:47 | P.PN ---
Subjective Progress Note Date: 02/25/21 This pleasant 85-year-old female patient who follows primarily with a threat monitoring analyst in [place]. Was seen in the past by Dr. Chaudhry in the office. 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 She has been recommended surgical intervention in the past and is apparently awaiting consultation upon her return to [place] with a surgeon who does minimally invasive mitral valve. She presented to the emergency department with complaints of progressively worsening shortness of breath over the past few days. They have any edema or weight gain. Denies any orthopnea or PND. EKG on admission showed atrial fibrillation with controlled ventricular response with PVCs. Chest x-ray on admission showed interstitial mild edema related to mild heart failure as change compared to old female, currently different. NT proBNP was elevated at 5660. Troponin was negative 1. Vital signs are stable and she is afebrile. She's been initiated on IV Lasix 40 mg every 12 hours. Upon examination patient is resting comfortably in bed. She's been on oxygen which was recently removed by the nursing staff and O2 sats on room air running in the high 80s. She feels her breathing is better. Denies any chest discomfort. Denies any palpitations, dizziness, lightheadedness or syncope. She verbalizes that she was initially planning to return to [place] in March but considering this admission and her recent issues she is considering going back sooner. She was apparently seen and evaluated at [facility] for valve surgery however was not comfortable with the surgeon she saw and does not wish to pursue surgery there at this time. 02/25/2021 Patient was seen and examined resting comfortably in bed this morning. Echocardiogram done yesterday showed normal LV systolic function with ejection fraction between 55-60%, severely dilated LA, severe mitral regurgitation secondary to flail posterior mitral leaflet, mild tricuspid regurgitation. Overall she feels her breathing is stable. She continues on Lasix 40 mg IV push every 12 hours. Objective - Vital Signs Vital signs: Vital Signs Temp 97.6 F 02/25/21 04:46 Pulse 68 02/25/21 08:05 Resp 16 02/25/21 04:46 BP 96/58 02/25/21 08:05 Pulse Ox 95 02/25/21 08:05 Intake & Output 08/02/25/21 02/25/21 18:59 06:59 18:59 Intake Total 550 300 Balance 550 300 Weight 43 kg 46.8 kg Intake: Oral 550 300 Other: Voiding Method Toilet Toilet Toilet # Voids 2 1 - Exam HEENT: Head is atraumatic, normocephalic. Pupils are equal, round. Sclerae anicteric. Conjunctivae are clear. Mucous membranes of the mouth are moist. Neck is supple. There is no elevated jugular venous pressure. No carotid bruit is heard. CHEST EXAMINATION: Lungs reveal faint bibasilar crackles, improved air exchange overall. No wheezes or rhonchi. Respirations even and nonlabored. HEART EXAMINATION: Heart irregular rate and rhythm, positive S1 and S2. With a grade 3/6 holosystolic murmur at the apex radiating to the axilla. ABDOMEN: Soft, nontender. Bowel sounds are heard. No organomegaly noted. EXTREMITIES: 2+ peripheral pulses with no evidence of peripheral edema and no calf tenderness noted. NEUROLOGIC EXAMINATION: Patient is awake, alert and oriented x3. - Labs CBC & Chem 7: 02/23/21 21:18 02/25/21 06:06 Labs: Abnormal Lab Results - Last 24 Hours (Table) 02/25/21 Range/Units 06:06 Est GFR (CKD-EPI)NonAf 52.1 L (60.0-200.0) BUN/Creatinine Ratio 25.00 H (12.00-20.00) Ratio Assessment and Plan Assessment: #1 acute on chronic congestive heart failure secondary to diastolic dysfunction as well as valvular heart disease #2 known severe mitral regurgitation patient is awaiting evaluation the cardiothoracic surgeon in [place] upon her return #3 hypertension #4 hyperlipidemia #5 hypothyroidism Plan: From cardiology's perspective we will switch her to by mouth Lasix. Continue monitor renal function, electrolytes and daily weights as well as intake and output. We will continue to follow the patient provide further recommendations accordingly. The above dictated assessment and findings were discussed with signing physi sonny. The impression and plan of care have been directed as dictated. Silvia Barger, Nurse Practitioner, acting as scribe for signing physician.
--- NOTE | 2021-02-25 13:07 | P.PN ---
Subjective Progress Note Date: 02/25/21 No new copmlaints today. Still w O2 requirement. Echo showed posterior flail leaflet. Pt will require surgical eval, but has hesitancy about procedure. Objective - Vital Signs Vital signs: Vital Signs Temp 98.2 F 02/25/21 12:55 Pulse 51 L 02/25/21 12:55 Resp 17 02/25/21 12:55 BP 117/80 02/25/21 12:55 Pulse Ox 97 02/25/21 12:55 Intake & Output 02/24/21 02/25/21 02/25/21 18:59 06:59 18:59 Intake Total 550 300 Balance 550 300 Weight 43 kg 46.8 kg Intake: Oral 550 300 Other: Voiding Method Toilet Toilet Toilet # Voids 2 1 - Exam Gen: awake, alert HEENT: normocephalic, atraumatic, good hearing acuity, moist mucous membranes Resp: good air exchange, breathing comfortably with no accessory muscle use, mild basilar crackles worse on the right CVS: good distal perfusion x 4, RRR, GI: soft, NTTP, ND : no SPT, no CVAT, ibarra catheter not present MSK: no pitting edema, no clubbing Neuro: non-focal, moving all extremities Psych: cooperative, euthymic mood - Labs CBC & Chem 7: 02/23/21 21:18 02/25/21 06:06 Labs: Abnormal Lab Results - Last 24 Hours (Table) 02/25/21 Range/Units 06:06 Est GFR (CKD-EPI)NonAf 52.1 L (60.0-200.0) BUN/Creatinine Ratio 25.00 H (12.00-20.00) Ratio Assessment and Plan Assessment: Acute diastolic CHF exacerbation Severe MR with posterior flail leaflet -Continue with Lasix -Cardiology consulted -CT surgery consulted -Supplemental oxygen -Intake and output -Daily weights -Fluid restriction -Monitor electrolytes daily -would benefit from dapa or empagliflozin Chronic conditions: A. fib, hypertension, hyperlipidemia, hypothyroidism -Continue with home meds DVT prophylaxis -Eliquis The patient is admitted with an anticipated less than 2 midnight stay for evaluation of CHF. CODE STATUS: Full Code Discussed with: Patient, Son, Anticipated discharge date: in am Anticipated discharge place: Home
[2021-02-25] MEDS: FUROSEMIDE 40 MG TAB PO SCH (17:13)
[2021-02-25] MEDS: PRAVASTATIN SODIUM 80 MG TAB PO SCH (20:55)
[2021-02-25] MEDS: LOSARTAN 50 MG TAB PO SCH (20:55)
[2021-02-26] MEDS: LEVOTHYROXINE 75 MCG TAB PO SCH (05:33)
[2021-02-26] MEDS: APIXABAN 2.5 MG TABLET PO SCH (08:01)
[2021-02-26] MEDS: FUROSEMIDE 40 MG TAB PO SCH ×2 (08:01→16:25)
[2021-02-26] MEDS: amLODIPine 5 MG TAB PO SCH (08:01)
[2021-02-26] MEDS: carvediloL 6.25 MG TAB PO SCH ×2 (08:01→20:00)
--- NOTE | 2021-02-26 09:44 | P.PN ---
Subjective This is a pleasant 85-year-old female past medical history significant for atrial fibrillation, chronic diastolic heart failure, severe mitral regurgitation with known ruptured chordae, hypertension and dyslipidemia. She is seen and examined sitting up in bed in no acute distress. Her breathing has stabilized. She has no further symptoms of shortness of breath. She denies chest pain, dizziness or palpitations. Telemetry tracings reveal atrial fibrillation with frequent PVCs. Blood pressure 101/59 heart rate 57 afebrile maintaining oxygen saturation on nasal cannula. Currently maintained on Eliquis 2.5 mg twice a day, amlodipine 5 mg daily, Coreg 6.25 mg twice a day, Lasix 40 mg by mouth twice a day, losartan 100 mg daily and pravastatin 80 mg daily. GENERAL: Well-appearing, well-nourished and in no acute distress. NECK: Supple without JVD or thyromegaly. LUNGS: Breath sounds clear to auscultation bilaterally. Respiration equal and unlabored. No wheezes, rales or rhonchi. HEART: Regular rate and rhythm with systolic ejection murmur at the apex best heard posteriorly, no rubs or gallops. S1 and S2 heard. EXTREMITIES: Normal range of motion, no edema. No clubbing or cyanosis. Peripheral pulses intact. ASSESSMENT Acute on chronic diastolic heart failure Severe mitral regurgitation Hypertension Dyslipidemia Chronic persistent atrial fibrillation on eliquis PLAN Hold eliquis. Cancel CT surgery consult until further work-up is complete including LEANDRO and possible heart catheterization. We will discuss with Dr. Chaudhry the possibility of proceeding with these tests tomorrow. In the meantime, we will hold her eliquis. Further recommendations to follow based on clinical course, Nurse Practitioner note has been reviewed, I agree with a documented findings and plan of care. Patient was seen and examined. Objective - Vital Signs Vital signs: Vital Signs Temp 97.9 F 02/26/21 04:47 Pulse 57 L 02/26/21 04:47 Resp 18 02/26/21 04:47 BP 101/59 02/26/21 04:47 Pulse Ox 99 02/26/21 04:47 Intake & Output 02/25/21 02/26/21 02/26/21 18:59 06:59 18:59 Intake Total 560 300 Balance 560 300 Weight 50 kg Intake: Oral 560 300 Other: Voiding Method Toilet Toilet # Voids 1 1 - Labs CBC & Chem 7: 02/23/21 21:18 02/25/21 06:06
--- NOTE | 2021-02-26 11:22 | P.PN ---
Subjective Progress Note Date: 02/26/21 Pt to undergo LHC and LEANDRO tomorrow for further workup of severe MR from flail leaflet. Pt appears to have limited insight into severity of the pathology, and believes she is almost ready to go home. Objective - Vital Signs Vital signs: Vital Signs Temp 97.9 F 02/26/21 04:47 Pulse 50 L 02/26/21 11:03 Resp 18 02/26/21 04:47 BP 101/59 02/26/21 04:47 Pulse Ox 93 L 02/26/21 11:03 Intake & Output 02/25/21 02/26/21 02/26/21 18:59 06:59 18:59 Intake Total 560 300 240 Balance 560 300 240 Weight 50 kg Intake: Oral 560 300 240 Other: Voiding Method Toilet Toilet Toilet # Voids 1 1 - Exam Gen: awake, alert HEENT: normocephalic, atraumatic, good hearing acuity, moist mucous membranes Resp: good air exchange, breathing comfortably with no accessory muscle use, mild basilar crackles worse on the right CVS: good distal perfusion x 4, RRR, GI: soft, NTTP, ND : no SPT, no CVAT, ibarra catheter not present MSK: no pitting edema, no clubbing Neuro: non-focal, moving all extremities Psych: cooperative, euthymic mood - Labs CBC & Chem 7: 02/23/21 21:18 02/25/21 06:06 Assessment and Plan Assessment: Acute diastolic CHF exacerbation Severe MR with posterior flail leaflet -Continue with Lasix -Cardiology consulted -CT surgery consult deferred until further cardiac workkup -LEANDRO and LHC pending -Supplemental oxygen -Intake and output -Daily weights -Fluid restriction -Monitor electrolytes daily Chronic conditions: A. fib, hypertension, hyperlipidemia, hypothyroidism -Continue with home meds DVT prophylaxis -Eliquis The patient is admitted with an anticipated less than 2 midnight stay for evaluation of CHF. CODE STATUS: Full Code Discussed with: Patient, Son, Anticipated discharge date: in am Anticipated discharge place: Home
[2021-02-26] MEDS: APIXABAN 5 MG TAB PO SCH (20:00)
[2021-02-26] MEDS: LOSARTAN 50 MG TAB PO SCH (20:00)
[2021-02-26] MEDS: PRAVASTATIN SODIUM 80 MG TAB PO SCH (20:00)
[2021-02-27 05:05] VITALS: BP 103/62; RESP 18; TEMP 98
[2021-02-27] MEDS: LEVOTHYROXINE 75 MCG TAB PO SCH (05:26)
[2021-02-27 07:23] VITALS: PULSE 73
[2021-02-27] MEDS: carvediloL 6.25 MG TAB PO SCH (09:06)
[2021-02-27] MEDS: FUROSEMIDE 40 MG TAB PO SCH (09:06)
[2021-02-27] MEDS: amLODIPine 5 MG TAB PO SCH (09:06)
[2021-02-27] MEDS: APIXABAN 5 MG TAB PO SCH (09:07)
--- NOTE | 2021-02-27 10:14 | CDI ---
Documentation Clarification Form Date: 02/27/2021 09:52:48 AM From: Yovana Colin RN CCDS Admit Date: 02/24/2021 12:37:00 PM Patient Name: Ginette Linn Visit Number: [id number] Discharge Date: ATTENTION: The Clinical Documentation Specialists (CDI) and [facility] Coding Staff appreciate your assistance in clarifying documentation. Please respond to the clarification below the line at the bottom and electronically sign. The CDI & [facility] Coding staff will review the response and follow-up if needed. Please note: Queries are made part of the Legal Health Record. If you have any questions, please contact the author of this message via ITS. Dr. Regina Pierre Your patient is receiving the following: oxygen documented 02/23, H&P. Please clarify what condition/diagnosis is being treated. History/Risk Factors: 85-year-old female presents to the ED with shortness of breath for the past week. Medical History: Diastolic CHF, HTN, HLD and Hypothyroidism. 02/23, H&P. Tobacco use: Former smoker 02/23, H&P Clinical Indicators: Vital signs: 02/23: B/P 151/82, HR 80, Temp 98.9 Oral F, RR 20, SpO2 93% 2L nasal cannula Pulse oximetry: 02/24 89% room air; 02/24 96% 2L nasal cannula Lung/Breathing assessment: 02/23 H&P CTA bilateral. Treatment: 2L Oxygen via nasal cannula Is there an additional diagnosis that is clinically appropriate for this patient? [ ] Acute Hypoxic Respiratory Failure (pO2 <60 mm Hg or SpO2 <91% on room air) [ ] Acute Respiratory Insufficiency [ ] Other Diagnosis, please specify [ ] Unable to determine (Template Last Revised: August 2020 Acute Hypoxic Respiratory Failure (pO2 <60 mm Hg or SpO2 <91% on room air) MTDD
--- NOTE | 2021-02-27 19:21 | P.DS ---
Providers Date of admission: 02/24/21 12:37 Expected date of discharge: 02/27/21 Attending physician: Trina Murray MD Consults: 02/23/21 22:05 Consult Physician Routine Consulting Provider: [facility] Consult Reason/Comments: CHF Do you want consulting provider notified?: Yes, Notify in am Primary care physician: Dusty Madsen Hospital Course: Discharge Diagnosis: Acute exacerbation of diastolic congestive heart failure with ejection fraction 55-60% Severe mitral regurgitation Hypertension Dyslipidemia Chronic persistent atrial fibrillation on Eliquis Acute hypoxic Respiratory failure Hospital Course: Patient is an 85-year-old female with a history of PACs as well as atrial fibrillation on Eliquis, diastolic congestive heart failure, hypertension, dyslipidemia, and hypothyroidism who presented to the emergency department with complaints of shortness of breath. In the emergency department she underwent an extensive evaluation. Her initial vital signs were within normal limits. Chest x-ray showed mild heart failure, EKG showed A. fib, and laboratory analysis was remarkable for BNP of 5660. She was admitted and started on IV Lasix for acute exacerbation of CHF. Cardiology was consulted. She underwent an echocardiogram which demonstrated an ejection fraction 55-60% with severe MR secondary to flail posterior mitral leaflet. She diuresed well and her symptoms improved. She was offered LEANDRO and heart cath for further evaluation of her mitral valvular disease. However she has a animal therapist in [place] and would prefer to follow with them. With her fluid status optimized she is determined stable for discharge home. We had a long tami discussion that she needs to ensure follow- up with her animal therapist in [place] and that it is extremely important that she follows up. Follow-up: Lasix increased from once daily to twice daily, follow up with Dr. Madsen in 2-3 days, follow up with cardiology in [place]. Patient seen and examined at bedside. Denies any chest pain, shortness breath, nausea, vomiting. Wants to go home. Vital signs reviewed and stable. General: non toxic, no distress, appears at stated age Derm: warm, dry Head: atraumatic, normocephalic, symmetric Eyes: EOMI, no lid lag, anicteric sclera Mouth: no lip lesion, mucus membranes moist Cardiovascular: S1S2 regular, no murmur, positive posterior tibial pulse bilateral, Lungs: Coarse breath sounds bilateral, no rhonchi, no rales , no accessory muscle use Abdominal: soft, nontender to palpation, no guarding, no appreciable organomegaly Ext: no gross muscle atrophy, no edema, no contractures Neuro: CN II-XI grossly intact, no focal neuro deficits Psych: Alert, oriented, appropriate affect A total of 35 minutes of time were spent preparing this complex discharge summary . Patient Condition at Discharge: Stable Plan - Discharge Summary Discharge Rx Participant: No New Discharge Prescriptions: New RX: Furosemide [Lasix] 40 mg PO BID@0900,1600 #60 tab Continue RX: Pravastatin Sodium [Pravachol] 80 mg PO HS RX: amLODIPine BESYLATE [Norvasc] 5 mg PO DAILY RX: Losartan Potassium 100 mg PO HS RX: Levothyroxine Sodium [Euthyrox] 75 mcg PO DAILY RX: Apixaban [Eliquis] 2.5 mg PO BID #60 tablet RX: carvediloL [Coreg] 6.25 mg PO BID Discontinued RX: Furosemide [Lasix] 40 mg PO DAILY #30 tab Discharge Medication List RX: Losartan Potassium 100 mg PO HS 01/27/18 [History] RX: Pravastatin Sodium [Pravachol] 80 mg PO HS 01/27/18 [History] RX: amLODIPine BESYLATE [Norvasc] 5 mg PO DAILY 01/27/18 [History] RX: Levothyroxine Sodium [Euthyrox] 75 mcg PO DAILY 03/24/20 [History] RX: Apixaban [Eliquis] 2.5 mg PO BID #60 tablet 03/27/20 [Rx] RX: carvediloL [Coreg] 6.25 mg PO BID 01/23/21 [History] RX: Furosemide [Lasix] 40 mg PO BID@0900,1600 #60 tab 02/27/21 [Rx] Follow up Appointment(s)/Referral(s): Dusty Madsen MD [Primary Care Provider] - 03/02/21 12:45 pm Patient Instructions/Handouts: Furosemide (By mouth) Activity/Diet/Wound Care/Special Instructions: Activity: as tolerated Diet: heart healthy Special Instructions: follow-up with your animal therapist in [place] in the next few weeks. Discharge Disposition: HOME SELF-CARE
== END 2021-02-27 10:35 | disposition home or self-care (01) | DRG 291 ==
LOC: EC 20:24 → 5NMEDONC 22:05 → OBSVTOIN 02-24 12:37
PROVIDERS: ADMIT Internal Medicine; ATTEND Internal Medicine
DX: I11.0 Hypertensive heart disease with heart failure (principal); J96.01 Acute respiratory failure with hypoxia; I51.1 Rupture of chordae tendineae, not elsewhere classified; I48.19 Other persistent atrial fibrillation; I50.33 Acute on chronic diastolic (congestive) heart failure; I49.3 Ventricular premature depolarization; J44.9 Chronic obstructive pulmonary disease, unspecified; I34.0 Nonrheumatic mitral (valve) insufficiency; E03.9 Hypothyroidism, unspecified; E78.5 Hyperlipidemia, unspecified; I49.1 Atrial premature depolarization; Z85.3 Personal history of malignant neoplasm of breast; Z20.822 Contact with and (suspected) exposure to COVID-19; Z79.01 Long term (current) use of anticoagulants; Z79.890 Hormone replacement therapy; Z79.899 Other long term (current) drug therapy; Z87.891 Personal history of nicotine dependence; Z90.710 Acquired absence of both cervix and uterus; Z92.3 Personal history of irradiation; T50.1X6A Underdosing of loop [high-ceiling] diuretics, initial encounter; Z91.128 Patient's intentional underdosing of medication regimen for other reason; Z98.890 Other specified postprocedural states
CPT/HCPCS: 36415; 71045; 80048; 80053; 83605; 83735; 83880; 84484; 85025; 85610; 85730; 87635; 93005; 93306; 94760; 96374; 99285

== ENCOUNTER → 2022-02-01 | Outpatient (CLI) | payer MEDICARE, BC ==
--- NOTE | 2022-02-01 15:37 | US ---
EXAMINATION TYPE: US carotid duplex BILAT DATE OF EXAM: 02/01/2022 COMPARISON: Carotid ultrasound March 06, 2018 CLINICAL HISTORY: H53.9 Unspecified visual disturbance. blurred vision. TECHNIQUE: Carotid duplex ultrasound examination. Indirect Doppler criteria was utilized. FINDINGS: EXAM MEASUREMENTS: RIGHT: Peak Systolic Velocity (PSV) cm/sec ----- Right CCA: 46.1 ----- Right ICA: 173 ----- Right ECA: 86.1 ICA/CCA ratio: 3.75 RIGHT: End Diastole cm/sec ----- Right CCA: 16.2 ----- Right ICA: 60.8 ----- Right ECA: 19.5 LEFT: Peak Systolic Velocity (PSV) cm/sec ----- Left CCA: 51.6 ----- Left ICA: 138 ----- Left ECA: 103 ICA/CCA ratio: 2.67 LEFT: End Diastole cm/sec ----- Left CCA: 14.5 ----- Left ICA: 28.1 ----- Left ECA: 12.7 VERTEBRALS (direction of flow): Right Vertebral: Antegrade Left Vertebral: Antegrade Rhythm: Normal ARCH SUPPORT MAKER NOTES: Bilateral plaque vessels dive deep. High velocities right ICA. Severe atherosclerotic changes bilaterally. Increased peak systolic velocity and right-sided end-johnson tolic velocity. Abnormal ratios bilaterally. IMPRESSION: Severe atherosclerotic changes bilaterally. At least 50% stenosis on the right is felt p resent. Stenosis likely greater than 50% is also likely present on the left. Advise further investiga tion with CTA or MRA of the neck. Criteria for Assigning % of Stenosis / Diameter reduction (Estimation based on the indirect measurements of the internal carotid artery velocities (ICA PSV). 1. Normal (no stenosis)=ICA PSV < 125 cm/s: ratio < 2.0: ICA EDV<40 cm/s. 2. Less than 50% stenosis=ICA PSV < 125 cm/s: ratio < 2.0: ICA EDV<40 cm/s. 3. 50 to 69% stenosis=ICA PSV of 125 to 230 cm/s: ration 2.0 ? 4.0: ICA EDV 40-100 cm/s. 4. Greater than 70% stenosis to near occlusion= ICA PSV > 230 cm/s: ratio > 4.0: ICA EDV > 100 cm/s. 5. Near occlusion= ICA PSV velocities may be low or undetectable: variable ratio and ICA EDV. 6. Total occlusion=unable to detect flow.
== END | disposition home or self-care (01) ==
LOC: RADUSWWP 13:19
PROVIDERS: ATTEND Family Medicine
DX: I65.23 Occlusion and stenosis of bilateral carotid arteries (principal); H53.9 Unspecified visual disturbance
CPT/HCPCS: 93880

== ENCOUNTER 2022-02-25 12:24 | Inpatient (IN) | payer MEDICARE, BC ==
--- NOTE | 2022-02-25 13:04 | ED ---
General Adult HPI - General Chief complaint: Shortness of Breath Stated complaint: SOB Time Seen by Provider: 02/25/22 12:38 Source: patient Mode of arrival: wheelchair Limitations: no limitations - History of Present Illness Initial comments: Dictation was produced using [employer] dictation software. please excuse any grammatical, word or spelling errors. Chief Complaint: 86 yo female past medical history of COPD, mitral valve disease and hypertension presents to the emergency room for shortness of breath History of Present Illness: 86-year-old female she presents to the emergency Department with her daughter. Patient has been having intermittent episodes of dyspnea for the last 2-3 days. Patient states that she is having mild cough. Denies any chest pain. She states she feels worse when she tries to exert herself. Daughter believes that patient has some sort of adverse reaction to new medication started by certified adaptive physical educator recently. Patient denies any constitutional symptoms. No nausea vomiting. The ROS documented in this emergency department record has been reviewed and confirmed by me. Those systems with pertinent positive or negative responses have been documented in the HPI. All other systems are other negative and/or noncontributory. PHYSICAL EXAM: General Impression: Alert and oriented x3, not in acute distress HEENT: Normocephalic atraumatic, extra-ocular movements intact, pupils equal and reactive to light bilaterally, mucous membranes moist. Cardiovascular: Heart regular rate and rhythm Chest: Able to complete full sentences, no retractions, no tachypnea, lungs clear to auscultation bilaterally Abdomen: abdomen soft, non-tender, non-distended, no organomegaly Musculoskeletal: Pulses present and equal in all extremities, no peripheral edema Motor: no focal deficits noted Neurological: CN II-XII grossly intact, no focal motor or sensory deficits noted Skin: Intact with no visualized rashes Psych: Normal affect and mood ED course: 86-year-old female presents emergency department for episodic dyspnea. Signs upon arrival shows respiratory rate of 22, heart rate of 41, rest of vital signs within acceptable limits. EKG shows multiple PVCs. To evaluation obtained. CBC within acceptable limits. Metabolic panel shows findings within acceptable limits. Coag panel is negative. D-dimer is 3.67. Troponin is elevated 0.093 with a prematurity peptide of 10,000. Chest x-ray shows no obvious abnormalities. CT angiography of the chest obtained for elevated d-dimer showing no evidence of pulmonary embolism. Patient admitted for non-ST segment elevation LA. She is given aspirin and started on heparin. Patient be admitted to [place] emergency department physician [facility] with consultation to cardiology. EKG interpretation: Ventricular rate 100, sinus tachycardia with first-degree AV block, frequent PVCs,. Interval to 51, QS 136, QTC 468. No [place] prolongation, no QTC prolongation, no ST or T-wave changes noted. EKG compared to 02/23/2021 showing no changes. Overall, this EKG is unremarkable - Related Data Home Medications Medication Instructions Recorded Confirmed Losartan Potassium 100 mg PO HS 01/27/18 02/23/21 Pravastatin Sodium [Pravachol] 80 mg PO HS 01/27/18 02/23/21 amLODIPine BESYLATE [Norvasc] 5 mg PO DAILY 01/27/18 02/23/21 Levothyroxine Sodium [Euthyrox] 75 mcg PO DAILY 03/24/20 02/23/21 carvediloL [Coreg] 6.25 mg PO BID 01/23/21 02/23/21 Previous Rx's Medication Instructions Recorded Apixaban [Eliquis] 2.5 mg PO BID #60 tablet 03/27/20 Furosemide [Lasix] 40 mg PO BID@0900,1600 #60 tab 02/27/21 Allergies Allergy/AdvReac Type Severity Reaction Status Date / Time No Known Allergies Allergy Verified 02/25/22 12:35 Review of Systems ROS Statement: Those systems with pertinent positive or pertinent negative responses have been documented in the HPI. ROS Other: All systems not noted in ROS Statement are negative. Past Medical History Past Medical History: Cancer, COPD, Hyperlipidemia, Hypertension Additional Past Medical History / Comment(s): hx of left breast ca with radiation 1992 History of Any Multi-Drug Resistant Organisms: None Reported Past Surgical History: Hysterectomy Additional Past Surgical History / Comment(s): mitral valve surgery; neck sx, left breast lumpectomy. right elbow bursectomy Past Anesthesia/Blood Transfusion Reactions: No Reported Reaction Past Psychological History: No Psychological Hx Reported Smoking Status: Former smoker Past Alcohol Use History: Occasional Past Drug Use History: None Reported - Past Family History Mother Family Medical History: No Reported History Father Additional Family Medical History / Comment(s): Father fairly young as complications of adhesions. General Exam Limitations: no limitations Course Vital Signs 02/25/22 02/25/22 02/25/22 12:31 13:01 14:35 Temperature 97.5 F L Pulse Rate 41 L 94 84 Respiratory 22 18 18 Rate Blood Pressure 165/77 128/106 O2 Sat by Pulse 99 94 L 94 L Oximetry Medical Decision Making - Lab Data Result diagrams: 02/25/22 13:05 02/25/22 13:05 Lab Results 02/25/22 02/25/22 02/25/22 Range/Units 13:05 13:05 13:05 WBC 5.3 (3.8-10.6) k/uL RBC 5.01 (3.80-5.40) m/uL Hgb 12.7 (11.4-16.0) gm/dL Hct 42.0 (34.0-46.0) % MCV 83.9 (80.0-100.0) fL MCH 25.4 (25.0-35.0) pg MCHC 30.3 L (31.0-37.0) g/dL RDW 15.6 H (11.5-15.5) % Plt Count 196 (150-450) k/uL MPV 8.3 Neutrophils % 65 % Lymphocytes % 21 % Monocytes % 10 % Eosinophils % 1 % Basophils % 1 % Neutrophils # 3.4 (1.3-7.7) k/uL Lymphocytes # 1.1 (1.0-4.8) k/uL Monocytes # 0.6 (0-1.0) k/uL Eosinophils # 0.1 (0-0.7) k/uL Basophils # 0.1 (0-0.2) k/uL Hypochromasia Moderate PT 11.1 (9.0-12.0) sec INR 1.0 (<1.2) APTT 27.5 (22.0-30.0) sec D-Dimer 3.67 H (<0.60) mg/L FEU Sodium 138 (137-145) mmol/L Potassium 5.0 (3.5-5.1) mmol/L Chloride 101 (98-107) mmol/L Carbon Dioxide 25 (22-30) mmol/L Anion Gap 12 mmol/L BUN 19 H (7-17) mg/dL Creatinine 0.74 (0.52-1.04) mg/dL Est GFR (CKD-EPI)AfAm 87 (>60 ml/min/1.73 sqM) Est GFR (CKD-EPI)NonAf 75 (>60 ml/min/1.73 sqM) Glucose 88 (74-99) mg/dL Plasma Lactic Acid Gurinder (0.7-2.0) mmol/L Calcium 8.9 (8.4-10.2) mg/dL Magnesium 1.9 (1.6-2.3) mg/dL Troponin I (0.000-0.034) ng/mL NT-Pro-B Natriuret Pep pg/mL 02/25/22 02/25/22 02/25/22 Range/Units 13:05 13:05 13:05 WBC (3.8-10.6) k/uL RBC (3.80-5.40) m/uL Hgb (11.4-16.0) gm/dL Hct (34.0-46.0) % MCV (80.0-100.0) fL MCH (25.0-35.0) pg MCHC (31.0-37.0) g/dL RDW (11.5-15.5) % Plt Count (150-450) k/uL MPV Neutrophils % % Lymphocytes % % Monocytes % % Eosinophils % % Basophils % % Neutrophils # (1.3-7.7) k/uL Lymphocytes # (1.0-4.8) k/uL Monocytes # (0-1.0) k/uL Eosinophils # (0-0.7) k/uL Basophils # (0-0.2) k/uL Hypochromasia PT (9.0-12.0) sec INR (<1.2) APTT (22.0-30.0) sec D-Dimer (<0.60) mg/L FEU Sodium (137-145) mmol/L Potassium (3.5-5.1) mmol/L Chloride (98-107) mmol/L Carbon Dioxide (22-30) mmol/L Anion Gap mmol/L BUN (7-17) mg/dL Creatinine (0.52-1.04) mg/dL Est GFR (CKD-EPI)AfAm (>60 ml/min/1.73 sqM) Est GFR (CKD-EPI)NonAf (>60 ml/min/1.73 sqM) Glucose (74-99) mg/dL Plasma Lactic Acid Gurinder 1.5 (0.7-2.0) mmol/L Calcium (8.4-10.2) mg/dL Magnesium (1.6-2.3) mg/dL Troponin I 0.093 H* (0.000-0.034) ng/mL NT-Pro-B Natriuret Pep 13497 pg/mL Critical Care Time Critical Care Time: Yes Total Critical Care Time: 33 Disposition Clinical Impression: NSTEMI (non-ST elevated myocardial infarction) Disposition: ADMITTED IP TO THIS HOSP Condition: Serious Referrals: Dusty Madsen MD [Primary Care Provider] - 1-2 days Decision Time: 14:39
[2022-02-25 13:15] LABS: Basophils # (A) 0.1 k/uL (0-0.2); Basophils % (A) 1 %; Eosinophils # (A) 0.1 k/uL (0-0.7); Eosinophils % (A) 1 %; HGB 12.7 gm/dL (11.4-16.0); Hypochromasia Moderate; Lymphocytes # (A) 1.1 k/uL (1.0-4.8); Lymphocytes % (A) 21 %; MCH 25.4 pg (25.0-35.0); MCHC 30.3 g/dL (31.0-37.0); MCV 83.9 fL (80.0-100.0); Mean Platelet Volume 8.3; Monocytes # (A) 0.6 k/uL (0-1.0); Monocytes % (A) 10 %; Neutrophils # (A) 3.4 k/uL (1.3-7.7); Neutrophils % (A) 65 %; Platelet Count 196 k/uL (150-450); RBC 5.01 m/uL (3.80-5.40); RDW 15.6 % (11.5-15.5); WBC 5.3 k/uL (3.8-10.6)
[2022-02-25 13:27] LABS: Calcium 8.9 mg/dL (8.4-10.2); Magnesium 1.9 mg/dL (1.6-2.3)
[2022-02-25 13:30] LABS: Partial Thromboplastin Time 27.5 sec (22.0-30.0); Prothrombin Time 11.1 sec (9.0-12.0)
--- NOTE | 2022-02-25 13:49 | XR ---
EXAMINATION TYPE: XR chest 2V DATE OF EXAM: 02/25/2022 COMPARISON: 02/23/2021 HISTORY: Shortness of breath TECHNIQUE: Frontal and lateral views of the chest are obtained. FINDINGS: Scattered senescent parenchymal changes noted. Hyperinflation compatible with COPD. There is cardiomegaly with chronic pulmonary venous decompensation. No evidence for overt failure at this time. No focal infiltrate. Sternotomy wires are in place. Valvular prosthesis noted. Mediastinal structures are stable and grossly unremarkable. No evidence for hilar prominence. Degenerative changes dorsal spine. IMPRESSION: 1. There is cardiomegaly with chronic pulmonary venous decompensation. No evidence for overt failure at this time.
--- NOTE | 2022-02-25 14:21 | CT ---
EXAMINATION TYPE: CT angio chest DATE OF EXAM: 02/25/2022 COMPARISON: 03/24/2020 HISTORY: Shortness of breath CT DLP: 247.1 mGycm CONTRAST: CT chest with contrast and 3D reconstruction with MIP imaging is performed with IV Contrast, patient injected with 100, wasted 24 mL of Isovue 300. Contrast-enhanced CT of the chest was performed through the course of the pulmonary arteries with julián g and mediastinal window settings submitted. 3D reconstruction with MIP imaging was also performed. PULMONARY ARTERIES: The pulmonary arteries and their major tributaries are patent. I do not see sawyer dence for sizable filling defect to suggest pulmonary embolic process. Prominence of the pulmonary ar wendi suggests pulmonary arterial hypertension. LUNGS: There is a small right-sided pleural effusion. Pulmonary venous congestion with mild interstit ial prominence. Moderate emphysematous changes. MEDIASTINUM: Thoracic aorta is of normal caliber,however, evaluation is limited given timing of the contrast bolus. If there is concern for thoracic aortic pathology consider LEADNRO. Correlate clinicall y . The heart is severely enlarged. No evidence for mediastinal mass. No mediastinal lymph nodes gre ater than 1cm. HILAR STRUCTURES: No evidence for mass. No hilar lymph nodes greater than 1 cm. UPPER ABDOMEN: No significant abnormality is seen. IMPRESSION: 1. No evidence for Pulmonary embolism at this time. 2. Pulmonary arterial hypertension. 3. Chronic pulmonary venous decompensation.
[2022-02-25] MEDS ORDERED: HEPARIN SODIUM 1,000 UN/ML (10ML VL) IV ONE (14:24)
[2022-02-25] MEDS ORDERED: ASPIRIN 81 MG PO STA (14:24)
[2022-02-25] MEDS ORDERED: HEPARIN SODIUM 1,000 UN/ML (10ML VL) IV PRN (14:24)
[2022-02-25] MEDS ORDERED: HEPARIN SOD,PORK IN 0.45% NACL 25,000 UNIT in 0.45% NACL 1 250ML.BAG IV SCH (14:30)
[2022-02-25] MEDS ORDERED: NITROGLYCERIN SL TABS 0.4 MG TAB SUBLINGUAL PRN (14:36)
--- NOTE | 2022-02-25 16:34 | P.HPIM ---
History of Present Illness H&P Date: 02/25/22 Chief Complaint: shortness of breath Patient is a 86-year-old female with a past medical COPD, mitral valve disease, hypertension. Patient presented to the hospital with difficulty in breathing. She was having intermittent in episodes of difficulty breathing for the past 3 days. She describes the difficulty in breathing worse with exertion. She's also complaining of some chest pressure. She denies any nausea or vomiting no fevers or chills no cough or congestion. Patient is visiting here from [place]. Review of Systems Full complete 12 point review of systems conducted pertinent positives and negative noted in HPI Past Medical History Past Medical History: Cancer, COPD, Hyperlipidemia, Hypertension Additional Past Medical History / Comment(s): hx of left breast ca with radiation 1991 History of Any Multi-Drug Resistant Organisms: None Reported Past Surgical History: Hysterectomy Additional Past Surgical History / Comment(s): mitral valve surgery; neck sx, left breast lumpectomy. right elbow bursectomy Past Anesthesia/Blood Transfusion Reactions: No Reported Reaction Past Psychological History: No Psychological Hx Reported Smoking Status: Former smoker Past Alcohol Use History: Occasional Past Drug Use History: None Reported - Past Family History Mother Family Medical History: No Reported History Father Additional Family Medical History / Comment(s): Father fairly young as complications of adhesions. Medications and Allergies Home Medications Medication Instructions Recorded Confirmed Type Pravastatin Sodium [Pravachol] 80 mg PO HS 01/27/18 02/25/22 History amLODIPine BESYLATE [Norvasc] 5 mg PO DAILY 01/27/18 02/25/22 History Levothyroxine Sodium [Euthyrox] 75 mcg PO AC-BRKFST 03/24/20 02/25/22 History Apixaban [Eliquis] 2.5 mg PO BID #60 tablet 03/27/20 02/25/22 Rx Furosemide [Lasix] 40 mg PO DAILY 02/25/22 02/25/22 History Metoprolol Succinate (ER) [Toprol 25 mg PO DAILY 02/25/22 02/25/22 History Xl] Potassium Chloride [Potassium 10 meq PO DAILY 02/25/22 02/25/22 History Chloride ER] Allergies Allergy/AdvReac Type Severity Reaction Status Date / Time No Known Allergies Allergy Verified 02/25/22 12:35 Physical Exam Osteopathic Statement: *. No significant issues noted on an osteopathic struc tural exam other than those noted in the History and Physical/Consult. Vitals: Vital Signs Temp Pulse Resp BP Pulse Ox 02/25/22 16:09 92 18 125/109 95 02/25/22 15:14 102 H 18 119/77 96 02/25/22 14:35 84 18 128/106 94 L 02/25/22 13:01 94 18 94 L 02/25/22 12:31 97.5 F L 41 L 22 165/77 99 Intake and Output 02/25/22 02/25/22 02/25/22 06:59 14:59 22:59 Other: Weight 46.266 kg General Alert and oriented x3, not in acute distress HEENT: Normocephalic atraumatic, extra-ocular movements intact, pupils equal and reactive to light bilaterally, mucous membranes moist. Cardiovascular: Heart regular rate and rhythm Chest: Able to complete full sentences, no retractions, no tachypnea, lungs clear to auscultation bilaterally Abdomen: abdomen soft, non-tender, non-distended, no organomegaly Musculoskeletal: Pulses present and equal in all extremities, no peripheral edema Motor: no focal deficits noted Neurological: CN II-XII grossly intact, no focal motor or sensory deficits noted Skin: Intact with no visualized rashes Psych: Normal affect and mood Results CBC & Chem 7: 02/25/22 13:05 02/25/22 13:05 Labs: Abnormal Lab Results - Last 24 Hours (Table) 02/25/22 02/25/22 02/25/22 Range/Units 13:05 13:05 13:05 MCHC 30.3 L (31.0-37.0) g/dL RDW 15.6 H (11.5-15.5) % D-Dimer 3.67 H (<0.60) mg/L FEU BUN 19 H (7-17) mg/dL Troponin I (0.000-0.034) ng/mL 02/25/22 02/25/22 Range/Units 13:05 14:53 MCHC (31.0-37.0) g/dL RDW (11.5-15.5) % D-Dimer (<0.60) mg/L FEU BUN (7-17) mg/dL Troponin I 0.093 H* 0.096 H* (0.000-0.034) ng/mL Assessment and Plan (1) NSTEMI (non-ST elevated myocardial infarction) Current Visit: Yes Status: Acute Code(s): I21.4 - NON-ST ELEVATION (NSTEMI) MYOCARDIAL INFARCTION SNOMED Code(s): 99254649 Plan: Dyspnea NSTEMI Acute exhacerbation of CHF -No EKG changes for ischemia. Patient's BNP elevated, troponins 0.093 -Patient placed on heparin GTT -Continue with home medications aspirin, metoprolol, statin -Patient started on IV Lasix 40 mg every 12 -Echocardiogram ordered and pending -Cardiology team consulted CODE STATUS: Full code Diet: Cardiac DVT prophylaxis: Heparin GTT
[2022-02-25] MEDS: PRAVASTATIN SODIUM 80 MG TAB PO SCH (21:23)
[2022-02-25] MEDS: FUROSEMIDE 10 MG/ML 4 ML VIAL IV SCH (21:24)
[2022-02-26] MEDS: LEVOTHYROXINE 75 MCG TAB PO SCH (06:40)
[2022-02-26 07:50] LABS: Basophils # (A) 0.1 k/uL (0-0.2); Basophils % (A) 1 %; Eosinophils # (A) 0.1 k/uL (0-0.7); Eosinophils % (A) 2 %; HCT 40.2 % (34.0-46.0); HGB 12.3 gm/dL (11.4-16.0); Hypochromasia Marked; Lymphocytes # (A) 1.4 k/uL (1.0-4.8); Lymphocytes % (A) 32 %; MCH 25.9 pg (25.0-35.0); MCHC 30.5 g/dL (31.0-37.0); MCV 84.8 fL (80.0-100.0); Mean Platelet Volume 8.4; Monocytes # (A) 0.5 k/uL (0-1.0); Monocytes % (A) 12 %; Neutrophils # (A) 2.2 k/uL (1.3-7.7); Neutrophils % (A) 50 %; Platelet Count 199 k/uL (150-450); RBC 4.73 m/uL (3.80-5.40); RDW 15.7 % (11.5-15.5); WBC 4.5 k/uL (3.8-10.6)
[2022-02-26 08:15] LABS: African American GFR (CKD) 70 (>60 ml/min/1.73 sqM); Anion Gap 12 mmol/L; Blood Urea Nitrogen 17 mg/dL (7-17); Calcium 8.9 mg/dL (8.4-10.2); Carbon Dioxide 27 mmol/L (22-30); Chloride 98 mmol/L (98-107); Glucose 92 mg/dL (74-99); Non-African American GFR(CKD) 61 (>60 ml/min/1.73 sqM); Sodium 137 mmol/L (137-145)
[2022-02-26] MEDS: FUROSEMIDE 10 MG/ML 4 ML VIAL IV SCH (08:15)
[2022-02-26] MEDS ORDERED: METOPROLOL SUCCINATE (ER) 25 MG TAB.ER.24H PO SCH (09:00)
[2022-02-26] MEDS ORDERED: amLODIPine 5 MG TAB PO SCH (09:00)
[2022-02-26] MEDS ORDERED: ASPIRIN 325 MG TAB PO SCH (09:00)
[2022-02-26] MEDS ORDERED: SPIRONOLACTONE 25 MG TAB PO SCH ×2 (10:15→18:00)
--- NOTE | 2022-02-26 10:55 | P.CRDCN ---
History of Present Illness History of present illness: HISTORY OF PRESENTING ILLNESS This is a pleasant 86-year-old female past medical history of atrial flutter/fibrillation, chronic heart failure with preserved ejection, hypertension, COPD, severe mitral regurgitation with known ruptured chordae s/p mitral valve surgery repair in April 2021, former cigarette smoker. She did follow with Dr. 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 Majority of her time she lives in [place]. We have been asked to see in consultation for elevated troponin. She presents emergency department with complaints of intermittent episodes of shortness of breath past 23 days. She endorses that she cannot do her daily activities. She could not walk 510 feet without feeling short of breath. She denies any chest pain, lightheadedness, dizziness, syncope or near-syncope, symptoms of orthopnea or PND. She denies any history of VA, stroke, diabetes. She was initially started on IV Lasix in the emergency department and her shortness of breath has significantly improved DIAGNOSTICS * EKG reveals atrial fibrillation with frequent PVCs * Telemetry tracings indicate atrial fibrillation with frequent PVCs heart rate 60s70s * Chest xray cardiomegaly with chronic pulmonary venous decompensation. No focal infiltrate noted * CT chest revealed no evidence of pulmonary embolism small right sided pleural effusion, pulmonary venous congestion with mild interstitial prominence, moderate emphysematous changes, pulmonary arterial hypertension * Echocardiogram, TTE in 01/2021 revealed EF 5560 percent, severe mitral regurgitation is present secondary to flail posterior mitral leaflet, mild tricuspid regurgitation * LEANDRO in 2019 revealed - EF 5055 percent, flail posterior mitral valve leaflet with ruptured chordae and severe eccentric mitral regurgitation, mild to moderate tricuspid regurgitation, severe pulmonary hypertension, small patent foramen ovale, dilated left atrium, normal appearance of left atrial appendage, mild to moderate atherosclerotic changes ascending thoracic aorta * Laboratory reviewed, WBC 5.3, hemoglobin 12.7 and platelets 196, d-dimer 3.67, sodium 139, potassium 5.0, BUN 19, serum creatinine 0.7, troponin 0.09--> 0.09--> 0.10, proBNP 10,000 * Current home cardiac medications include Eliquis 2.5 mg. TE, Lasix 40 mg daily, metoprolol succinate 25 mg daily, potassium chloride 10meq daily, pravastatin 80 mg nightly, amlodipine 5 mg daily REVIEW OF SYSTEMS At the time of my exam: CONSTITUTIONAL: Denies fever or chills. CARDIOVASCULAR: Denies chest pain, Reports shortness of breath, Denies orthopnea, PND or palpitations. RESPIRATORY: Denies cough. GASTROINTESTINAL: Denies abdominal pain, diarrhea, constipation, nausea or vomiting. MUSCULOSKELETAL: Denies myalgias. NEUROLOGIC: Denies numbness, tingling, headacbe or weakness. ENDOCRINE: Denies fatigue, weight change, polydipsia or polyurina. GENITOURINARY: Denies burning, hematuria or urgency with micturation. HEMATOLOGIC: Denies history of anemia or bleeding. PHYSICAL EXAMINATION Vitals reviewed CONSTITUTIONAL: No apparent distress. HEENT: Head is normocephalic. Pupils are equal, round. Sclerae anicteric. Mucous membranes of the mouth are moist. No JVD. No carotid bruit. CHEST EXAMINATION: Lungs are clear to auscultation. No chest wall tenderness is noted on palpation or with deep breathing. HEART EXAMINATION: Irregular rate and rhythm. S1, S2 heard. No murmurs. RV heave noted on exam. ABDOMEN: Soft, nontender. Positive bowel sounds. EXTREMITIES: 2+ peripheral pulses, no lower extremity edema and no calf tenderness. NEUROLOGIC EXAMINATION: Patient is awake, alert and oriented x3. ASSESSMENT Frequent premature ventricular complexes Elevated troponin Symptoms of shortness of breath Acute on chronic heart failure with preserved ejection fraction Persistent atrial fibrillation, on Eliquis outpatient Hypertension Dyslipidemia Former nicotine dependence History of left breast cancer status post radiation PLAN Obtain 2D echocardiogram and doppler study to assess cardiac structure and function. Recommend starting amiodarone secondary to frequent PVCs. Start amiodarone 400mg daily for 1 month, then amiodarone 200mg daily for 3 months, then amiodarone 100mg daily thereafter Stop amlodipine Stop metoprolol Start carvedilol 3.125mg BID Low dose aldactone Lasix 60mg Daily PO Monitor I/Os, daily weights, renal function and electrolytes Monitor for additional 24 hours Further recommendations based on clinical course Nurse practitioner note has been reviewed by physician. Signing provider agrees with the documented findings, assessment, and plan of care. Past Medical History Past Medical History: Cancer, COPD, Hyperlipidemia, Hypertension Additional Past Medical History / Comment(s): hx of left breast ca with radiation 1991 History of Any Multi-Drug Resistant Organisms: None Reported Past Surgical History: Hysterectomy Additional Past Surgical History / Comment(s): mitral valve surgery; neck sx, left breast lumpectomy. right elbow bursectomy Past Anesthesia/Blood Transfusion Reactions: No Reported Reaction Past Psychological History: No Psychological Hx Reported Smoking Status: Former smoker Past Alcohol Use History: Occasional Past Drug Use History: None Reported - Past Family History Mother Family Medical History: No Reported History Father Additional Family Medical History / Comment(s): Father fairly young as complications of adhesions. Medications and Allergies Home Medications Medication Instructions Recorded Confirmed Type Pravastatin Sodium [Pravachol] 80 mg PO HS 01/27/18 02/25/22 History amLODIPine BESYLATE [Norvasc] 5 mg PO DAILY 01/27/18 02/25/22 History Levothyroxine Sodium [Euthyrox] 75 mcg PO AC-BRKFST 03/24/20 02/25/22 History Apixaban [Eliquis] 2.5 mg PO BID #60 tablet 03/27/20 02/25/22 Rx Furosemide [Lasix] 40 mg PO DAILY 02/25/22 02/25/22 History Metoprolol Succinate (ER) [Toprol 25 mg PO DAILY 02/25/22 02/25/22 History Xl] Potassium Chloride [Potassium 10 meq PO DAILY 02/25/22 02/25/22 History Chloride ER] Allergies Allergy/AdvReac Type Severity Reaction Status Date / Time No Known Allergies Allergy Verified 02/25/22 12:35 Physical Exam Vitals: Vital Signs Temp Pulse Pulse Resp BP BP Pulse Ox 02/26/22 04:00 64 18 146/88 97 02/26/22 01:56 66 18 02/26/22 00:00 98.1 F 66 18 123/70 98 02/25/22 20:00 80 18 02/25/22 18:57 98.3 F 89 18 143/94 95 02/25/22 18:05 92 18 118/97 95 02/25/22 16:09 92 18 125/109 95 02/25/22 15:14 102 H 18 119/77 96 02/25/22 15:06 98.4 F 80 18 114/66 98 02/25/22 14:35 84 18 128/106 94 L 02/25/22 13:01 94 18 94 L 02/25/22 12:31 97.5 F L 41 L 22 165/77 99 Intake and Output 02/25/22 02/25/22 02/26/22 14:59 22:59 06:59 Intake Total 120 135 Output Total 300 Balance 120 -165 Intake: Intake, IV Titration 15 Amount Heparin Sod,Pork in 0.45% 15 NaCl 25,000 unit In 0.45 % NaCl 1 250ml.bag @ 12 UNITS/KG/HR 5.552 mls/hr IV .Q24H [facility] Rx#: [id number] Oral 120 120 Output: Urine 300 Other: Voiding Method Toilet Toilet Weight 46.266 kg 46.266 kg Results 02/26/22 07:13 02/26/22 07:13 Cardiac Enzymes 02/25/22 02/25/22 02/25/22 Range/Units 13:05 14:53 17:25 Troponin I 0.093 H* 0.096 H* 0.102 H* (0.000-0.034) ng/mL Coagulation 02/25/22 02/25/22 Range/Units 13:05 21:08 PT 11.1 (9.0-12.0) sec APTT 27.5 50.3 H (22.0-30.0) sec CBC 02/25/22 Range/Units 13:05 WBC 5.3 (3.8-10.6) k/uL RBC 5.01 (3.80-5.40) m/uL Hgb 12.7 (11.4-16.0) gm/dL Hct 42.0 (34.0-46.0) % Plt Count 196 (150-450) k/uL Comprehensive Metabolic Panel 02/25/22 Range/Units 13:05 Sodium 138 (137-145) mmol/L Potassium 5.0 (3.5-5.1) mmol/L Chloride 101 (98-107) mmol/L Carbon Dioxide 25 (22-30) mmol/L BUN 19 H (7-17) mg/dL Creatinine 0.74 (0.52-1.04) mg/dL Glucose 88 (74-99) mg/dL Calcium 8.9 (8.4-10.2) mg/dL Current Medications Generic Name Dose Route Start Last Admin Trade Name Freq PRN Reason Stop Dose Admin Amlodipine Besylate 5 mg 02/26/22 09:00 Amlodipine 5 Mg Tab PO DAILY [facility] Aspirin 325 mg 02/26/22 09:00 Aspirin 325 Mg Tab PO DAILY VALDO Furosemide 40 mg 02/25/22 21:00 02/25/22 21:24 Furosemide 10 Mg/Ml 4 Ml Vial IV 40 mg Q12HR VALDO Administration Heparin Sodium (Porcine) 0 unit 02/25/22 14:24 Heparin Sodium 1,000 Un/Ml (10ml Vl) IV PER PROTOCOL PRN Low PTT Protocol Heparin Sodium/Sodium Chloride 250 mls @ 5.552 mls/hr 02/25/22 14:30 02/25/22 15:00 25,000 unit/ Sodium Chloride IV 12 units/kg/hr .Q24H VALDO 5.552 mls/hr Administration Protocol 12 UNITS/KG/HR Levothyroxine Sodium 75 mcg 02/26/22 07:30 Levothyroxine 75 Mcg Tab PO AC-BRKFST [facility] Metoprolol Succinate 25 mg 02/26/22 09:00 Metoprolol Succinate (Er) 25 Mg Tab.Er.24h PO DAILY [facility] Nitroglycerin 0.4 mg 02/25/22 14:36 Nitroglycerin Sl Tabs 0.4 Mg Tab SUBLINGUAL Q5M PRN Chest Pain Pravastatin Sodium 80 mg 02/25/22 21:00 02/25/22 21:23 Pravastatin Sodium 80 Mg Tab PO 80 mg HS VALDO Administration Intake and Output 02/25/22 02/25/22 02/26/22 14:59 22:59 06:59 Intake Total 120 135 Output Total 300 Balance 120 -165 Intake: Intake, IV Titration 15 Amount Heparin Sod,Pork in 0.45% 15 NaCl 25,000 unit In 0.45 % NaCl 1 250ml.bag @ 12 UNITS/KG/HR 5.552 mls/hr IV .Q24H [facility] Rx#: [id number] Oral 120 120 Output: Urine 300 Other: Voiding Method Toilet Toilet Weight 46.266 kg 46.266 kg Patient Weight 02/26/22 06:59 Weight 46.266 kg 02/25/22 13:05 02/25/22 13:05
[2022-02-26] MEDS: AMIODARONE 200 MG TAB PO SCH (11:48)
[2022-02-26] MEDS: APIXABAN 2.5 MG TABLET PO SCH ×2 (11:48→20:14)
--- NOTE | 2022-02-26 13:21 | CA ---
Transthoracic Echo Report Name: Ginette Linn Age: 86 Gender: F : 1935 Exam Date: 02/26/2022 08:54 Exam Location: [facility] Ht (in): 51 Wt (lb): 102 Ordering Physician: Azam Marie MD Attending/Referring Phys: Credit Products Officer Bridget Danielle RDCS Procedure CPT: Indications: chf Cardiac Hx: MV repair, copd, hyperlipidemia, Htn. Technical Quality: Good Contrast 1: Total Dose (mL): Contrast 2: Total Dose (mL): MEASUREMENTS (Male / Female) Normal Values 2D ECHO LV Diastolic Diameter PLAX 5.7 cm 4.2 - 5.9 / 3.9 - 5.3 cm LV Systolic Diameter PLAX 4.8 cm IVS Diastolic Thickness 0.7 cm 0.6 - 1.0 / 0.6 - 0.9 cm LVPW Diastolic Thickness 1.0 cm 0.6 - 1.0 / 0.6 - 0.9 cm LV Relative Wall Thickness 0.3 RV Internal Dim ED PLAX 2.9 cm LA Systolic Diameter LX 0.9 cm 3.0 - 4.0 / 2.7 - 3.8 cm LV Diastolic Volume MOD BP 59.6 cm??? 67 - 155 / 56 - 104 cm??? LV Systolic Volume MOD BP 34.8 cm??? 22 - 58 / 19 - 49 cm??? LV Ejection Fraction MOD BP 41.7 % >= 55 % LV Diastolic Volume MOD 4C 81.6 cm??? LV Systolic Volume MOD 4C 44.3 cm??? LV Ejection Fraction MOD 4C 45.7 % LV Diastolic Length 4C 7.5 cm LV Systolic Length 4C 6.5 cm LV Diastolic Volume MOD 2C 36.5 cm??? LV Systolic Volume MOD 2C 23.6 cm??? LV Ejection Fraction MOD 2C 35.3 % LV Diastolic Length 2C 6.2 cm LV Systolic Length 2C 5.6 cm LA Volume 181.2 cm??? 18 - 58 / 22 - 52 cm??? M-MODE Aortic Root Diameter MM 2.8 cm LA Systolic Diameter MM 4.8 cm LA Ao Ratio MM 1.7 MV E Point Septal Separation 0.8 cm AV Cusp Separation MM 1.3 cm DOPPLER AV Peak Velocity 93.4 cm/s AV Peak Gradient 3.5 mmHg AI Peak Velocity 209.5 cm/s AI Peak Gradient 17.6 mmHg AI Pressure Half Time 473.7 ms MR Peak Velocity 506.3 cm/s MR Peak Gradient 102.5 mmHg TR Peak Velocity 269.3 cm/s TR Peak Gradient 29.0 mmHg Right Ventricular Systolic Press 33.9 mmHg PV Peak Velocity 70.4 cm/s PV Peak Gradient 2.0 mmHg PI Peak Gradient 11.0 mmHg FINDINGS Left Ventricle Mildly increased posterior wall thickness. Mildly increased left ventricular diastolic diameter. Moderately decreased left ventricular ejection fraction. Grade 3 diastolic dysfunction. Left ventricular ejection fraction is estimated at 40-45 %. Right Ventricle Reduced right ventricular global systolic function. Right ventricular systolic pressure within normal limits. Right Atrium Severely dilated right atria. Left Atrium Severely increased left atrial volume. Severely increased left atrial area. Mitral Valve MV repair. Mitral annular calcification. Mitral valve thickened. Mild mitral regurgitation. Aortic Valve Aortic valve sclerosis. There is trace aortic regurgitation. Tricuspid Valve Structurally normal tricuspid valve without significant stenosis. Pulmonary artery systolic pressure is normal. Moderate to severe tricuspid regurgitation. Pulmonic Valve Structurally normal pulmonic valve without significant stenosis. There is no pulmonic regurgitation. Pericardium Normal pericardium without effusion. Aorta Normal aortic root dimension. CONCLUSIONS Left ventricular EF 40-45% with global hypokinesis. Grade 3 diastolic dysfunction Severely dilated left and right atria consistent with restrictive cardiomyopathy. Status post mitral valve repair. Mild mitral regurgitation. Moderate to severe tricuspid regurgitation RVSP 33 Previewed by: Dr. Mikey Holly DO (Electronically Signed) Final Date: 26 February 2022 13:20
--- NOTE | 2022-02-26 14:17 | P.PN ---
Subjective Progress Note Date: 02/26/22 Principal diagnosis: Chest pain Patient was not having any complaints of nausea or vomiting no fevers or chills. Not complaining of any further episodes of shortness of breath. Objective - Vital Signs Vital signs: Vital Signs Temp 98 F 02/26/22 12:00 Pulse 74 02/26/22 12:00 Resp 16 02/26/22 12:00 BP 110/72 02/26/22 11:39 Pulse Ox 97 02/26/22 12:00 FiO2 Intake & Output 02/25/22 02/26/22 02/26/22 18:59 06:59 18:59 Intake Total 255 276.05 Output Total 300 Balance -45 276.05 Weight 46.266 kg 46.1 kg 46.1 kg Intake: Intake, IV Titration 15 96.05 Amount Heparin Sod,Pork in 0.45% 15 96.05 NaCl 25,000 unit In 0.45 % NaCl 1 250ml.bag @ 12 UNITS/KG/HR 5.552 mls/hr IV .Q24H [facility] Rx#: [id number] Oral 240 180 Output: Urine 300 Other: Voiding Method Toilet # Voids 1 - Exam Vitals reviewed CONSTITUTIONAL: No apparent distress. HEENT: Head is normocephalic. Pupils are equal, round. Sclerae anicteric. Mucous membranes of the mouth are moist. No JVD. No carotid bruit. CHEST EXAMINATION: Lungs are clear to auscultation. No chest wall tenderness is noted on palpation or with deep breathing. HEART EXAMINATION: Irregular rate and rhythm. S1, S2 heard. No murmurs. RV heave noted on exam. ABDOMEN: Soft, nontender. Positive bowel sounds. EXTREMITIES: 2+ peripheral pulses, no lower extremity edema and no calf tenderness. NEUROLOGIC EXAMINATION: Patient is awake, alert and oriented x3. - Labs CBC & Chem 7: 02/26/22 07:13 02/26/22 07:13 Labs: Abnormal Lab Results - Last 24 Hours (Table) 02/25/22 02/25/22 02/25/22 Range/Units 14:53 17:25 21:08 MCHC (31.0-37.0) g/dL RDW (11.5-15.5) % APTT 50.3 H (22.0-30.0) sec Troponin I 0.096 H* 0.102 H* (0.000-0.034) ng/mL 02/26/22 02/26/22 Range/Units 07:13 07:19 MCHC 30.5 L (31.0-37.0) g/dL RDW 15.7 H (11.5-15.5) % APTT 41.9 H (22.0-30.0) sec Troponin I (0.000-0.034) ng/mL Assessment and Plan (1) NSTEMI (non-ST elevated myocardial infarction) Current Visit: Yes Status: Acute Code(s): I21.4 - NON-ST ELEVATION (NSTEMI) MYOCARDIAL INFARCTION SNOMED Code(s): 66019295 Plan: Dyspnea NSTEMI Acute exhacerbation of CHF -Continue with Lasix. Cardiology has switched it to 60 mg daily -Continue with carvedilol -No EKG changes for ischemia. Patient's BNP elevated, troponins 0.093 -Echocardiogram ordered and pending -Cardiology team following Frequent PVCs -Cardiology has initiated patient on amiodarone. 40 mg daily for one month, 200 mg daily for 3 month, 100 mg daily afterwards. Disposition: Anticipate discharge in the next 24 hours will await for cardiology clearance CODE STATUS: Full code Diet: Cardiac DVT prophylaxis: Heparin GTT
[2022-02-26 15:18] LABS: Chol/HDL Ratio 2.31 Ratio; LDL Cholesterol,Calculated 71.5 mg/dL (0.0-131.0); VLDL Calculation 13.72 mg/dL (5.00-40.00)
[2022-02-26] MEDS: carvediloL 3.125 MG TAB PO SCH (17:00)
[2022-02-26] MEDS: PRAVASTATIN SODIUM 80 MG TAB PO SCH (20:14)
[2022-02-27] MEDS: carvediloL 3.125 MG TAB PO SCH (06:07)
[2022-02-27] MEDS: LEVOTHYROXINE 75 MCG TAB PO SCH (06:07)
[2022-02-27 07:50] LABS: Calcium 8.9 mg/dL (8.4-10.2); Potassium 4.4 mmol/L (3.5-5.1)
[2022-02-27 07:54] VITALS: RESP 20
[2022-02-27] MEDS ORDERED: ASPIRIN 81 MG PO SCH (09:00)
[2022-02-27] MEDS ORDERED: FUROSEMIDE 20 MG TAB PO SCH (09:00)
[2022-02-27] MEDS ORDERED: SPIRONOLACTONE 25 MG TAB PO SCH (09:00)
[2022-02-27] MEDS: AMIODARONE 200 MG TAB PO SCH (09:52)
[2022-02-27] MEDS: APIXABAN 2.5 MG TABLET PO SCH (09:53)
[2022-02-27 11:22] VITALS: BP 120/57; PULSE 88; TEMP 98
--- NOTE | 2022-02-27 11:40 | P.PN ---
Subjective This is a pleasant 86-year-old female past medical history of atrial flutter/fibrillation, chronic heart failure with preserved ejection, hypertensio n, COPD, severe mitral regurgitation with known ruptured chordae s/p mitral valve surgery repair in April 2021, former cigarette smoker. She did follow with Dr. 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 Majority of her time she lives in [place]. We have been asked to see in consultation for elevated troponin. She presents emergency department with complaints of intermittent episodes of shortness of breath past 23 days. She endorses that she cannot do her daily activities. She could not walk 510 feet without feeling short of breath. She denies any chest pain, lightheadedness, dizziness, syncope or near-syncope, symptoms of orthopnea or PND. She denies any history of PR, stroke, diabetes. She was initially started on IV Lasix in the emergency department and her shortness of breath has significantly improved DIAGNOSTICS * EKG reveals atrial fibrillation with frequent PVCs * Chest xray cardiomegaly with chronic pulmonary venous decompensation. No focal infiltrate noted * CT chest revealed no evidence of pulmonary embolism small right sided pleural effusion, pulmonary venous congestion with mild interstitial prominence, moderate emphysematous changes, pulmonary arterial hypertension * Echocardiogram, TTE in 01/2021 revealed EF 5560 percent, severe mitral regu rgitation is present secondary to flail posterior mitral leaflet, mild tricuspid regurgitation * LEANDRO in 2018 revealed - EF 5055 percent, flail posterior mitral valve leaflet with ruptured chordae and severe eccentric mitral regurgitation, mild to moderate tricuspid regurgitation, severe pulmonary hypertension, small patent foramen ovale, dilated left atrium, normal appearance of left atrial append age, mild to moderate atherosclerotic changes ascending thoracic aorta * Current home cardiac medications include Eliquis 2.5 mg. TE, Lasix 40 mg daily, metoprolol succinate 25 mg daily, potassium chloride 10meq daily, pravastatin 80 mg nightly, amlodipine 5 mg daily 02/27 Patient seen and examined at bedside, no acute distress. Her shortness of breath has improved. She denies any chest pain. Overall is feeling well. Serum current increase 1.25today from 0.88 Echocardiogram: EF 4045 % with global hypokinesis, grade 3 diastolic dysfunction, severely dilated left and right atria are consistent with restrictive cardiomyopathy, status post mitral valve repair, mild mitral regurgitation, moderate severe tricuspid regurgitation, RVSP of 33 mmHg PHYSICAL EXAMINATION Vitals reviewed CONSTITUTIONAL: No apparent distress. HEENT: Head is normocephalic. Pupils are equal, round. Sclerae anicteric. Mucous membranes of the mouth are moist. No JVD. No carotid bruit. CHEST EXAMINATION: Lungs are clear to auscultation. No chest wall tenderness is noted on palpation or with deep breathing. HEART EXAMINATION: Irregular rate and rhythm. S1, S2 heard. No murmurs. RV heave noted on exam. ABDOMEN: Soft, nontender. Positive bowel sounds. EXTREMITIES: 2+ peripheral pulses, no lower extremity edema and no calf tenderness. NEUROLOGIC EXAMINATION: Patient is awake, alert and oriented x3. ASSESSMENT Frequent premature ventricular complexes Elevated troponin Symptoms of shortness of breath Acute on chronic heart failure with preserved ejection fraction Persistent atrial fibrillation, on Eliquis outpatient Hypertension Dyslipidemia Former nicotine dependence History of left breast cancer status post radiation PLAN Recommend continuing amiodarone secondary to frequent PVCs. Start amiodarone 400mg daily for 1 month, then amiodarone 200mg daily for 3 months, then amiodarone 100mg daily thereafter Continue carvedilol 3.125mg BID Continue Low dose aldactone Lasix 40mg Daily PO Patient is currently stable, possible discharge later today. Recommend close follow up outpatient with her r d intern. Nurse practitioner note has been reviewed by physician. Signing provider agrees with the documented findings, assessment, and plan of care. Objective - Vital Signs Vital signs: Vital Signs Temp 98.0 F 02/27/22 11:21 Pulse 88 02/27/22 11:21 Resp 20 02/27/22 11:21 BP 120/57 02/27/22 11:21 Pulse Ox 94 L 02/27/22 11:21 FiO2 Intake & Output 02/26/22 02/27/22 02/27/22 18:59 06:59 18:59 Intake Total 530.299 580 Balance 530.299 580 Weight 46.1 kg Intake: Intake, IV Titration 110.299 Amount Heparin Sod,Pork in 0.45% 110.299 NaCl 25,000 unit In 0.45 % NaCl 1 250ml.bag @ 12 UNITS/KG/HR 5.552 mls/hr IV .Q24H [facility] Rx#: [id number] Oral 420 580 Other: Voiding Method Toilet Toilet # Voids 1 - Labs CBC & Chem 7: 08/30/22 07:13 02/27/22 06:57 Labs: Abnormal Lab Results - Last 24 Hours (Table) 02/26/22 02/26/22 02/27/22 Range/Units 07:13 15:03 06:57 APTT 31.5 H (22.0-30.0) sec BUN 26 H (7-17) mg/dL Creatinine 1.25 H (0.52-1.04) mg/dL HDL Cholesterol 64.80 H (40.00-60.00) mg/dL
--- NOTE | 2022-02-27 13:54 | P.DS ---
Providers Date of admission: 02/25/22 14:36 Attending physician: Sunny Gurrola MD Consults: 02/25/22 14:36 Consult Physician Urgent Consulting Provider: Mikey Holly Consult Reason/Comments: nstemi Do you want consulting provider notified?: Yes Primary care physician: Dusty Madsen - Discharge Diagnosis(es) (1) NSTEMI (non-ST elevated myocardial infarction) Current Visit: Yes Status: Acute Hospital Course: This is a pleasant 86-year-old female past medical history of atrial flutter/fibrillation, chronic heart failure with preserved ejection, hypertension, COPD, severe mitral regurgitation with known ruptured chordae s/p mitral valve surgery repair in April 2021, former cigarette smoker. She presents emergency department with complaints of intermittent episodes of shortness of breath past 23 days. She endorses that she cannot do her daily activities. She could not walk 510 feet without feeling short of breath. Patient was admitted to the hospital on IV Lasix, cardiac workup. Patient was seen and examined by cardiology. She was diagnosed with frequent premature ventricular complexes. She was started on treatment with amiodarone. She is to start amiodarone 400 mg daily for one month then go to 200 mg daily for 3 months and then amiodarone 100 mg daily thereafter. She is to continue with carvedilol 3.125 twice a day, low-dose Aldactone, Lasix. She was cleared by cardiology for discharge. On day of discharge was in stable medical condition without any respiratory distress without any chest pain. Patient Condition at Discharge: Stable Plan - Discharge Summary Discharge Rx Participant: No New Discharge Prescriptions: New Amiodarone [Cordarone] 400 mg PO DAILY #240 tab Spironolactone [Aldactone] 12.5 mg PO DAILY #90 tab carvediloL [Coreg] 3.125 mg PO BID-W/MEALS #60 tab Continue Pravastatin Sodium [Pravachol] 80 mg PO HS Levothyroxine Sodium [Euthyrox] 75 mcg PO AC-BRKFST Apixaban [Eliquis] 2.5 mg PO BID #60 tablet Furosemide [Lasix] 40 mg PO DAILY Discontinued amLODIPine BESYLATE [Norvasc] 5 mg PO DAILY Metoprolol Succinate (ER) [Toprol Xl] 25 mg PO DAILY Potassium Chloride [Potassium Chloride ER] 10 meq PO DAILY Discharge Medication List Pravastatin Sodium [Pravachol] 80 mg PO HS 01/27/18 [History] Levothyroxine Sodium [Euthyrox] 75 mcg PO AC-BRKFST 03/24/20 [History] Apixaban [Eliquis] 2.5 mg PO BID #60 tablet 03/27/20 [Rx] Furosemide [Lasix] 40 mg PO DAILY 02/25/22 [History] Amiodarone [Cordarone] 400 mg PO DAILY #240 tab 02/27/22 [Rx] Spironolactone [Aldactone] 12.5 mg PO DAILY #90 tab 02/27/22 [Rx] carvediloL [Coreg] 3.125 mg PO BID-W/MEALS #60 tab 02/27/22 [Rx] Follow up Appointment(s)/Referral(s): Ivan Galvez MD [STAFF PHYSICIAN] - 03/07/22 10:30 am (With Dr. Chaudhry related to Medicare insurance.) Dusty Madsen MD [Primary Care Provider] - 1-2 days (Office not answering at this time--please call office for appointment.) Patient Instructions/Handouts: Spironolactone (By mouth), Amiodarone (By mouth), Carvedilol (By mouth), Heart Attack (DC) Activity/Diet/Wound Care/Special Instructions: Cardiology Instructions: Start amiodarone 400mg daily ofr 1 month, then amiodarone 200mg daily for 3 months, then amiodarone 100mg daily thereafter
== END 2022-02-27 14:47 | disposition home or self-care (01) | DRG 280 ==
LOC: EC 12:24 → 3SCARD 14:36
PROVIDERS: ADMIT Internal Medicine; ATTEND Internal Medicine
DX: I21.4 Non-ST elevation (NSTEMI) myocardial infarction (principal); I50.33 Acute on chronic diastolic (congestive) heart failure; I42.5 Other restrictive cardiomyopathy; I48.19 Other persistent atrial fibrillation; I48.92 Unspecified atrial flutter; I11.0 Hypertensive heart disease with heart failure; J44.9 Chronic obstructive pulmonary disease, unspecified; I49.3 Ventricular premature depolarization; I34.0 Nonrheumatic mitral (valve) insufficiency; E78.5 Hyperlipidemia, unspecified; I44.0 Atrioventricular block, first degree; Z79.01 Long term (current) use of anticoagulants; Z79.890 Hormone replacement therapy; Z79.899 Other long term (current) drug therapy; Z85.3 Personal history of malignant neoplasm of breast; Z87.891 Personal history of nicotine dependence; Z92.3 Personal history of irradiation; Z28.21 Immunization not carried out because of patient refusal
CPT/HCPCS: 36415; 71046; 71275; 80048; 80061; 83605; 83735; 83880; 84484; 85025; 85379; 85610; 85730; 93005; 93306; 96365; 96366; 96375; 99291